=== PATIENT | female | born 1935 | race Caucasian/White ===

== ENCOUNTER 2017-09-19 15:36 | Inpatient (IN) | payer BC, OTHER ==
[~2017-09-19] VITALS: Ht 167.6 cm; Wt 77.5 kg
[~2017-09-19 15:36] MED LIST: ASCA500 PO; ASPEC325 PO; B-COCAP2 PO; CLTP PO; CRAN1CAP15 PO; LECI1200 PO; LEVO75TA PO; MULT-506 PO; OMEG10007 PO; SERT50TA PO; SIMV10TA2 PO; VITA400C15 PO
[2017-09-19] MEDS ORDERED: MoRPHine SULFATE 2 MG/ML CARP IV STA (16:03)
[2017-09-19] MEDS ORDERED: SODIUM CHLORIDE 0.9% 1000ML 1,000 ML IV STA (16:03)
[2017-09-19] MEDS ORDERED: ONDANSETRON INJ 2 MG/ML 2 ML VIAL IV STA (16:03)
--- NOTE | 2017-09-19 16:06 | EMERGENCY ROOM VISIT NOTE ---
History Report prepared by Nanci: Fletcher Shelby Under the Supervision of: Dr. Nadiya Kim M.D. First contact with patient: 15:50 Chief Complaint: FALL Stated Complaint: FALL, L HIP & R ARM PAIN History of Present Illness The patient is an 82 year old female who presents to the Emergency Room with complaints of constant, severe, left hip pain beginning an hour ago. The patient states she was walking to the car to go home when she slipped on ice and fell. She reports she landed on her left hip and right arm. The patient notes it hurts to move her left leg in any direction. She states she did not bump her head, become incontinent of her bladder or stool, or consuming alcohol. The patient reports she takes Zoloft, thyroid medication, and Zocor. Source of History: patient Onset: hour ago Position: other (left hip) Symptom Intensity: severe Timing: constant Note: Associated symptoms: right arm pain Denies: bumping head, becoming incontinent of her bladder or stool, consuming alcohol Review of Systems See HPI for pertinent positives & negatives. A total of 10 systems reviewed and were otherwise negative. Past Medical & Surgical Medical Problems: (1) bladder tack (2) Hip fracture, left (3) Hypercholesteremia (4) Hypothyroid Surgical Problems: (1) S/P tubal ligation Family History Cancer Social History Smoking Status: Never Smoker Alcohol Use: occasionally Marital Status: Housing Status: lives with family Occupation Status: retired Current/Historical Medications Scheduled Aspirin (Aspirin), 325 MG PO DAILY Calcium Carbonate-Cholecalcife (Caltrate 600+D), 1 TAB PO DAILY Levothyroxine Sodium (Levothyroxine Sodium), 75 MCG PO DAILY Multivitamin (Multivitamin), 1 TAB PO DAILY Sertraline HCl (Sertraline HCl), 50 MG PO DAILY Simvastatin (Simvastatin), 10 MG PO QPM Allergies Coded Allergies: No Known Allergies (Unverified , 09/19/17) Physical Exam Vital Signs Date Time Temp Pulse Resp B/P (MAP) Pulse Ox O2 Delivery O2 Flow Rate FiO2 09/19/17 17:47 63 20 158/70 99 Room Air 09/19/17 15:40 36.4 75 18 181/88 98 Room Air Physical Exam Vital signs reviewed. General: Well-appearing elderly, 82 year old female, in no significant distress. HEENT: No scleral icterus, PERRLA, neck supple. Atraumatic. Cardiovascular: Regular rate and rhythm, no extra sounds. Pulmonary: Clear to auscultation bilaterally, normal work of breathing. Abdomen: Soft, nontender, nondistended, positive bowel sounds. Musculoskeletal: Mild tenderness without significant deformity to the right proximal humorous. Tenderness to palpation over the left inguinal region with the leg externally rotated at the hip. Neurovascularly intact distally. Neurologic: Patient awake alert and oriented x 3 Skin: Warm, dry, no rash Medical Decision & Procedures ER Provider Diagnostic Interpretation: Radiology results as stated below per my review and radiologist interpretation: R SHOULDER MIN 2 VIEWS ROUTINE CLINICAL HISTORY: 82 years-old Female presenting with RIght shoulder fracture. TECHNIQUE: Frontal and transscapular Y views of the right shoulder were obtained. COMPARISON: Chest x-ray from 2013. FINDINGS: Essentially unchanged appearance of the posttraumatic or advanced degenerative deformity of the right humeral head and glenohumeral joint. The humeral metaphysis is also mildly angulated, likely chronic deformity. Degenerative changes of the acromioclavicular joint. Possible old fracture deformity of the right clavicle. IMPRESSION: Angulation of the proximal metaphysis is concerning for fracture, however, due to the severe degree of chronic deformity, assessment for acuity of this is difficult. If there is continuing clinical concern, cross-sectional imaging could be obtained. Electronically signed by: Cornelius Dutton M.D. 09/19/2017 4:48 PM Dictated Date/Time: 09/19/2017 4:46 PM L HIP UNILATERAL 2 VIEWS CLINICAL HISTORY: 82 years-old Female presenting with left hip deformity. TECHNIQUE: Frontal and crosstable lateral views of the left hip were obtained. COMPARISON: Plain radiographs of the right hip from 2013. FINDINGS: Evidence of a comminuted intertrochanteric fracture with diastases at the fracture plane measuring 14 mm. At least 14 mm of displacement of the lesser trochanteric fracture fragment. Valgus alignment of the distal fracture fragment with apex lateral angulation at the fracture site. The femoral head remains congruent in the hip joint. IMPRESSION: Comminuted, displaced intertrochanteric left femoral fracture. Electronically signed by: Cornelius Dutton M.D. 09/19/2017 4:46 PM Dictated Date/Time: 09/19/2017 4:44 PM CHEST ONE VIEW PORTABLE CLINICAL HISTORY: 82 years-old Female presenting with fall, hip fx. TECHNIQUE: Portable upright AP view of the chest was obtained. COMPARISON: 03/20/2014. FINDINGS: Atherosclerosis of the aortic arch. Cardiac silhouette normal in size. Lungs and pleural spaces clear. Posttraumatic and/or advanced degenerative changes of the right glenohumeral joint. No displaced rib fracture is apparent. Upper abdomen normal. IMPRESSION: 1. No acute cardiopulmonary disease. Electronically signed by: Cornelius Dutton M.D. 09/19/2017 4:44 PM Dictated Date/Time: 09/19/2017 4:42 PM R UPPER EXTREMITY WITHOUT CLINICAL HISTORY: 82 years-old Female presenting with Right shoulder fracture. TECHNIQUE: Multidetector CT of the right shoulder was performed without the use of intravenous contrast. IV contrast: None. A dose lowering technique was used consistent with the principles of ALARA (as low as reasonably achievable). COMPARISON: Plain radiograph performed earlier the same day. CT DOSE (mGy.cm): The estimated cumulative dose is 692.51 mGy.cm. FINDINGS: [employer] topogram: Unremarkable. Chronic deformity of the humeral head and neck without evidence of a fracture plane to suggest acute injury. Mild angulation of the surgical neck from chronic deformity. Effacement of the acromiohumeral interval consistent with complete rotator cuff tear. Mild fatty atrophy of the supraspinatus and infraspinatus. Advanced degenerative change of the glenohumeral joint. Prominent osteophytosis of the humeral head both superiorly and inferiorly. Evidence of joint space loss of the glenohumeral joint most pronounced inferiorly with subchondral sclerosis in both the humeral head and glenoid. Bony remodeling of the glenoid. Degenerative changes of the acromioclavicular joint. Possible posttraumatic deformity of the clavicle. No evidence of a rib fracture. Minimal dependent changes in the right lung likely atelectasis. Osteopenia. IMPRESSION: Post traumatic deformity of the humerus. No evidence of an acute osseous injury. Advanced degenerative changes as above. Electronically signed by: Cornelius Dutton M.D. 09/19/2017 5:24 PM Dictated Date/Time: 09/19/2017 5:21 PM Laboratory Results 09/19/17 16:10 Red Blood Count 3.97, Mean Corpuscular Volume 101.0, Mean Corpuscular Hemoglobin 34.3, Mean Corpuscular Hemoglobin Concent 33.9, Mean Platelet Volume 10.5, Neutrophils (%) (Auto) 66.0, Lymphocytes (%) (Auto) 25.4, Monocytes (%) ( Auto) 6.7, Eosinophils (%) (Auto) 1.0, Basophils (%) (Auto) 0.7, Neutrophils # ( Auto) 5.41, Lymphocytes # (Auto) 2.08, Monocytes # (Auto) 0.55, Eosinophils # ( Auto) 0.08, Basophils # (Auto) 0.06 09/19/17 16:10 Test 09/19/17 16:10 White Blood Count 8.20 K/uL (4.8-10.8) Red Blood Count 3.97 M/uL (4.2-5.4) Hemoglobin 13.6 g/dL (12.0-16.0) Hematocrit 40.1 % (37-47) Mean Corpuscular Volume 101.0 fL (80-100) Mean Corpuscular Hemoglobin 34.3 pg (25-34) Mean Corpuscular Hemoglobin Concent 33.9 g/dl (32-36) Platelet Count 243 K/uL (130-400) Mean Platelet Volume 10.5 fL (7.4-10.4) Neutrophils (%) (Auto) 66.0 % Lymphocytes (%) (Auto) 25.4 % Monocytes (%) (Auto) 6.7 % Eosinophils (%) (Auto) 1.0 % Basophils (%) (Auto) 0.7 % Neutrophils # (Auto) 5.41 K/uL (1.4-6.5) Lymphocytes # (Auto) 2.08 K/uL (1.2-3.4) Monocytes # (Auto) 0.55 K/uL (0.11-0.59) Eosinophils # (Auto) 0.08 K/uL (0-0.5) Basophils # (Auto) 0.06 K/uL (0-0.2) RDW Standard Deviation 49.2 fL (36.4-46.3) RDW Coefficient of Variation 13.3 % (11.5-14.5) Immature Granulocyte % (Auto) 0.2 % Immature Granulocyte # (Auto) 0.02 K/uL (0.00-0.02) Activated Partial Thromboplast Time 22.6 SECONDS (21.0-31.0) Partial Thromboplastin Ratio 0.9 Anion Gap 9.0 mmol/L (3-11) Est Creatinine Clear Calc Drug Dose 34.5 ml/min Estimated GFR () 43.9 Estimated GFR (Non- 37.9 BUN/Creatinine Ratio 11.5 (10-20) Calcium Level 8.9 mg/dl (8.5-10.1) Magnesium Level 2.1 mg/dl (1.8-2.4) Total Bilirubin 0.3 mg/dl (0.2-1) Direct Bilirubin < 0.1 mg/dl (0-0.2) Aspartate Amino Transf (AST/SGOT) 17 U/L (15-37) Alanine Aminotransferase (ALT/SGPT) 20 U/L (12-78) Alkaline Phosphatase 75 U/L (45-117) Total Protein 7.2 gm/dl (6.4-8.2) Albumin 3.6 gm/dl (3.4-5.0) Laboratory results per my review. Medications Administered Medications (Trade) Dose Ordered Sig/Edda Route Start Time Stop Time Status Last Admin Dose Admin Morphine Sulfate (MoRPHine SULFATE INJ) 2 mg NOW STAT IV 09/19/17 16:03 09/19/17 16:05 DC 09/19/17 16:42 2 MG Ondansetron HCl (Zofran Inj) 4 mg NOW STAT IV 09/19/17 16:03 09/19/17 16:05 DC 09/19/17 16:42 4 MG Sodium Chloride 1,000 ml @ 125 mls/hr Q8H STAT IV 09/19/17 16:03 09/19/17 19:21 DC 09/19/17 16:46 125 MLS/HR Hydromorphone HCl (Dilaudid Inj) 0.5 mg NOW STAT IV 09/19/17 17:47 09/19/17 17:55 DC 09/19/17 17:59 0.5 MG ECG Indication: other (pre-op) Rate (beats per minute): 57 Rhythm: sinus bradycardia Findings: PAC, RBBB (incomplete), no acute ischemic change, other (Low voltage) ED Course 1556: Past medical records reviewed. The patient was evaluated in room B03B. A complete history and physical examination was performed. 1603: Ordered Sodium Chloride 1000 ml @ 125 mls/hr IV, Ondansetron HCl 4mg IV, Morphine Sulfate 2mg IV 171: I [facility] the patient's [facility] The patient will be evaluated for further management and care. 1750: Upon reevaluation, the patient is resting comfortably. I discussed laboratory and radiographic results with her. She verbalized agreement of the treatment plan. The patient will be evaluated for further management and care. Medical Decision Differential diagnosis: Etiologies such as fracture, dislocation, neurovascular compromise, compartment syndrome, soft tissue injury, as well as others were entertained. This patient was evaluated and appeared to be in no significant distress. IV access was obtained and laboratory work was drawn. Patient was medicated with IV morphine and Zofran. X-rays confirm a left intertrochanteric fracture. The right humerus appears to have had an old injury, but due to tenderness a CT scan was performed after the x-ray was unclear. There is no acute fracture of the proximal humerus. The patient was informed of the findings. She will be evaluated by the hospitalist service for further management and orthopedic consultation. Patient is aware of the plan and agrees. Medication Reconcilliation Current Medication List: was personally reviewed by me Blood Pressure Screening Patient's blood pressure: Elevated blood pressure Monitored by hospitalist. Consults Time Called: 1713 Consulting Physician: Savi Nava Returned Call: 1715 I discussed the patient's case with Savi Nava. The patient will be evaluated for further management and care. Impression Primary Impression: Hip fracture, left Scribe Attestation The scribe's documentation has been prepared under my direction and personally reviewed by me in its entirety. I confirm that the note above accurately reflects all work, treatment, procedures, and medical decision making performed by me. Departure Information Dispostion Being Evaluated By Hospitalist Prescriptions Calcium Carbonate-Cholecalcife (CALTRATE 600+D) 1 Tab Tab 1 TAB PO DAILY, #30 Prov: Chris Molina MD 09/19/17 Referrals Leobardo Lowery D.O. (PCP) Patient Instructions My [facility]
[2017-09-19] MEDS ORDERED: LEVO75TA5 PO (16:09)
[2017-09-19] MEDS ORDERED: ASPECOTC PO (16:09)
[2017-09-19] MEDS ORDERED: MULT-506 PO (16:09)
[2017-09-19] MEDS ORDERED: ZLF/50 PO (16:09)
[2017-09-19] MEDS ORDERED: SIMV-150 PO (16:09)
[2017-09-19 16:21] LABS: BASO % 0.7 %; BASO ABS # 0.06 K/uL (0-0.2); EOS ABS # 0.08 K/uL (0-0.5); HEMATOCRIT 40.1 % (37-47); HEMOGLOBIN 13.6 g/dL (12.0-16.0); IG# 0.02 K/uL (0.00-0.02); LYMPH % 25.4 %; LYMPH ABS # 2.08 K/uL (1.2-3.4); MEAN CORPUSCULAR HEMOGLOBIN 34.3 pg (25-34); MEAN CORPUSCULAR HGB CONC 33.9 g/dl (32-36); MEAN PLATELET VOLUME 10.5 fL (7.4-10.4); MONO % 6.7 %; MONO ABS # 0.55 K/uL (0.11-0.59); NEUT ABS # 5.41 K/uL (1.4-6.5); PLATELET COUNT 243 K/uL (130-400); RED CELL DISTRIBUTION WIDTH CV 13.3 % (11.5-14.5); RED CELL DISTRIBUTION WIDTH SD 49.2 fL (36.4-46.3)
[2017-09-19 16:34] LABS: PTT PATIENT 22.6 SECONDS (21.0-31.0)
[2017-09-19 16:37] LABS: ALBUMIN 3.6 gm/dl (3.4-5.0); ALT/SGPT 20 U/L (12-78); BLOOD UREA NITROGEN 15 mg/dl (7-18); CALCIUM 8.9 mg/dl (8.5-10.1); CARBON DIOXIDE 26 mmol/L (21-32); GLUCOSE 152 mg/dl (70-99); POTASSIUM 3.5 mmol/L (3.5-5.1); SODIUM 140 mmol/L (136-145)
[2017-09-19 16:40] LABS: ALKALINE PHOSPHATASE 75 U/L (45-117); AST/SGOT 17 U/L (15-37); TOTAL PROTEIN 7.2 gm/dl (6.4-8.2)
--- NOTE | 2017-09-19 16:45 | DIAGNOSTIC IMAGING REPORT ---
CHEST ONE VIEW PORTABLE CLINICAL HISTORY: 82 years-old Female presenting with fall, hip fx. TECHNIQUE: Portable upright AP view of the chest was obtained. COMPARISON: 03/20/2014. FINDINGS: Atherosclerosis of the aortic arch. Cardiac silhouette normal in size. Lungs and pleural spaces clear. Posttraumatic and/or advanced degenerative changes of the right glenohumeral joint. No displaced rib fracture is apparent. Upper abdomen normal. IMPRESSION: 1. No acute cardiopulmonary disease. Electronically signed by: Cornelius Dutton M.D. 09/19/2017 4:44 PM Dictated Date/Time: 09/19/2017 4:42 PM
--- NOTE | 2017-09-19 16:47 | DIAGNOSTIC IMAGING REPORT ---
L HIP UNILATERAL 2 VIEWS CLINICAL HISTORY: 82 years-old Female presenting with left hip deformity. TECHNIQUE: Frontal and crosstable lateral views of the left hip were obtained. COMPARISON: Plain radiographs of the right hip from 2014. FINDINGS: Evidence of a comminuted intertrochanteric fracture with diastases at the fracture plane measuring 14 mm. At least 14 mm of displacement of the lesser trochanteric fracture fragment. Valgus alignment of the distal fracture fragment with apex lateral angulation at the fracture site. The femoral head remains congruent in the hip joint. IMPRESSION: Comminuted, displaced intertrochanteric left femoral fracture. Electronically signed by: Cornelius Dutton M.D. 09/19/2017 4:46 PM Dictated Date/Time: 09/19/2017 4:44 PM
--- NOTE | 2017-09-19 16:50 | DIAGNOSTIC IMAGING REPORT ---
R SHOULDER MIN 2 VIEWS ROUTINE CLINICAL HISTORY: 82 years-old Female presenting with RIght shoulder fracture. TECHNIQUE: Frontal and transscapular Y views of the right shoulder were obtained. COMPARISON: Chest x-ray from 2014. FINDINGS: Essentially unchanged appearance of the posttraumatic or advanced degenerative deformity of the right humeral head and glenohumeral joint. The humeral metaphysis is also mildly angulated, likely chronic deformity. Degenerative changes of the acromioclavicular joint. Possible old fracture deformity of the right clavicle. IMPRESSION: Angulation of the proximal metaphysis is concerning for fracture, however, due to the severe degree of chronic deformity, assessment for acuity of this is difficult. If there is continuing clinical concern, cross-sectional imaging could be obtained. Electronically signed by: Cornelius Dutton M.D. 09/19/2017 4:48 PM Dictated Date/Time: 09/19/2017 4:46 PM
--- NOTE | 2017-09-19 17:26 | DIAGNOSTIC IMAGING REPORT ---
R UPPER EXTREMITY WITHOUT CLINICAL HISTORY: 82 years-old Female presenting with Right shoulder fracture. TECHNIQUE: Multidetector CT of the right shoulder was performed without the use of intravenous contrast. IV contrast: None. A dose lowering technique was used consistent with the principles of ALARA (as low as reasonably achievable). COMPARISON: Plain radiograph performed earlier the same day. CT DOSE (mGy.cm): The estimated cumulative dose is 692.51 mGy.cm. FINDINGS: [employer] topogram: Unremarkable. Chronic deformity of the humeral head and neck without evidence of a fracture plane to suggest acute injury. Mild angulation of the surgical neck from chronic deformity. Effacement of the acromiohumeral interval consistent with complete rotator cuff tear. Mild fatty atrophy of the supraspinatus and infraspinatus. Advanced degenerative change of the glenohumeral joint. Prominent osteophytosis of the humeral head both superiorly and inferiorly. Evidence of joint space loss of the glenohumeral joint most pronounced inferiorly with subchondral sclerosis in both the humeral head and glenoid. Bony remodeling of the glenoid. Degenerative changes of the acromioclavicular joint. Possible posttraumatic deformity of the clavicle. No evidence of a rib fracture. Minimal dependent changes in the right lung likely atelectasis. Osteopenia. IMPRESSION: Post traumatic deformity of the humerus. No evidence of an acute osseous injury. Advanced degenerative changes as above. Electronically signed by: Cornelius Dutton M.D. 09/19/2017 5:24 PM Dictated Date/Time: 09/19/2017 5:21 PM
[2017-09-19] MEDS ORDERED: HYDROmorphone INJ 0.5 MG/0.5 ML SYR IV STA (17:47)
[2017-09-19] MEDS ORDERED: CALC-354 PO (17:59)
[2017-09-19] MEDS ORDERED: ONDANSETRON INJ 2 MG/ML 2 ML VIAL IV PRN (18:00)
[2017-09-19] MEDS ORDERED: ACETAMINOPHEN 325 MG TAB PO PRN (18:00)
[2017-09-19] MEDS ORDERED: HEPARIN SOD 5000 UNIT/0.5 ML CARP SQ ONE (18:27)
[2017-09-19 18:57] VITALS: O2SAT 97
--- NOTE | 2017-09-19 19:01 | HISTORY & PHYSICAL EXAMINATION ---
DATE OF ADMISSION: 09/19/2017 CHIEF COMPLAINT: Status post fall and left hip fracture. HISTORY OF PRESENT ILLNESS: This is an 82-year-old female with past medical history significant for psoriasis, depression, hyperlipidemia, hypothyroidism, chronic kidney disease stage III, presents with fall and left hip fracture. The patient says she was going to a car and it was slope and has ice and she slipped on the ice and she thinks she might have felt first on the right shoulder and then on the left hip and she could not get up and she was having severe pain and she was brought into the ER.In the ER, x-rays showed left hip comminuted intertrochanteric fracture. Blood pressure running high mostly secondary to pain. She still has some pain. Denies any dizziness prior to fall. No chest pain. No shortness of breath. No loss of consciousness. The patient has some chronic on and off cough. Denies any fever, chills, no headaches, no blurred vision, no runny nose, has hearing aids. No sore throat, no difficulty swallowing. No nausea, no vomiting, no abdominal pain. Normal bowel and bladder movements. No burning micturition. The patient is otherwise very active. 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 ALLERGIES: POLLEN. PAST MEDICAL HISTORY: As mentioned above. PAST SURGICAL HISTORY: Cystoscopy, tonsillectomy, repair of rectocele, total hysterectomy, puncture and drainage of the left breast. MEDICATIONS: The patient is on Caltrate 600+ D 1 tablet every a.m., vitamin C 1000 mg p.o. daily,Lecithin 1200 mg p.o. daily, B complex tablets 1 tablet daily, multivitamin 1 tablet daily, vitamin E capsule 400 units p.o. daily, aspirin 325 mg p.o. daily, Zocor 10 mg p.o. daily, Zoloft 50 mg p.o. daily, and levothyroxine 75 mcg p.o. daily. FAMILY HISTORY: Significant for sister has and cancer and diabetes. Father has heart disorder and a stroke. Mother has cancer. SOCIAL HISTORY: Never smoked. No alcohol use, occasional wine. No drug use. . REVIEW OF SYMPTOMS: As per HPI. Rest of review of systems negative. PHYSICAL EXAMINATION: GENERAL: The patient is of moderate build, not in distress. VITAL SIGNS: Temperature 36.4, pulse 75, respiratory rate 18, blood pressure 181/88, oxygen 98% room air. HEENT: No pallor, no icterus. Pupils equal, round, and reactive to light. NECK: No JVD, no neck masses, no carotid bruits. CARDIOVASCULAR: S1, S2 heard, regular rate and rhythm, no murmur, no gallop. RESPIRATORY SYSTEM: Normal AP diameter. No accessory muscle use. No wheezing, no crackles. ABDOMEN: Soft, bowel sounds present. Nontender. No distention. CENTRAL NERVOUS SYSTEM: Cranial nerves II-XII grossly intact. Nonfocal. EXTREMITIES: The left lower extremity is externally rotated and shortened. Right shoulder has some painful movement which is chronic. LABORATORY DATA: PTT 0.9. WBC 8.2, hemoglobin 13.6, hematocrit 40.1, and platelets 243. Sodium 140, potassium 3.5, chloride 105, bicarbonate 26, BUN 15, creatinine 1.3, serum glucose 152. Calcium 8.9, magnesium 2.1, total bilirubin 0.3, direct bilirubin less than 0.1, AST 17, ALT 20, alkaline phosphatase 75. IMAGING DATA: Right shoulder - x-ray angulation of the proximal metaphysis concerning for fracture; however, due to severe degree of chronic deformity assessment for acuity of this is difficult. Hip x-ray, comminuted displaced intertrochanteric left femoral fracture. Chest x-ray - no acute cardiopulmonary disease. Upper extremity CT - posttraumatic deformity of the humerus, no evidence of an acute osseous injury, advanced degenerative changes. EKG showed sinus bradycardia with PACs, incomplete right bundle branch block at rate of 57. No acute ST changes seen. ASSESSMENT AND PLAN: This is an 82-year-old female status post fall and left hip fracture. 1. Status post mechanical fall and left hip fracture. We will admit to medical floor. IV fluids, IV pain medications p.r.n., IV antiemetics p.r.n. Consulted ortho and plan for OR in a.m. The patient has no cardiac history. Ekg and chest x-ray unremarkable. The patient has good ambulatory status. The patient should be at acceptable risk to proceed with surgery. 2. Elevated blood pressure. No history of blood pressure, mostly situational from the pain. We will place on IV hydralazine p.r.n. 3. Acute renal failure and chronic kidney disease stage III. Baseline creatinine around 1-1.1, Presented with creatinine 1.3, probably from above. The patient will be placed on fluids. Will follow the labs in a.m. 4. Hypothyroidism. Continue Synthroid. 5. Hyperlipidemia. Continue statin. 6. Depression. Continue Zoloft. 7. Deep venous thrombosis prophylaxis. We will give 1 dose heparin subQ now and further anticoagulation post-surgery as per orthopedics. DISPOSITION: Admit to medical floor. PT and OT prior to discharge and Social Service to help with discharge planning. MADELEINE
[2017-09-19 19:44] VITALS: BP 161/74; PULSE 71; TEMP 36.7; O2SAT 99; Ht 167.6 cm; Wt 77.5 kg
--- NOTE | 2017-09-19 19:45 | NUR ---
ID: Pt A/O x 4. Very painful at this time. Rates pain 8-10/10. Pt ordered total bed rest. NSS at 100 in the left AC, to be changed to NS +20k when ED bag ends. lungs are clear throughout on 2L NC per protocol. Denies N/t severe weakness to LLE. AHA diet until midnight then NPO. Has not voided. Allevens on sacrum and heels. Bed in low and locked position, call teague in reach, pt rings appropriately. Waiting on orders for mccormick at this time.
[2017-09-19] MEDS: NSS + 20MEQ KCL 1000ML 1,000 ML IV SCH (20:46)
[2017-09-19] MEDS ORDERED: NALOXONE HCL 0.4 MG/1 ML VIAL/CARP IV PRN (21:15)
[2017-09-19] MEDS ORDERED: SOD PHOSPHATE/SOD BIPHOSPHATE ENEMA 132 ML BTL PR PRN (21:15)
[2017-09-19] MEDS ORDERED: MAGNESIUM HYDROXIDE SUSP 30 ML UDC PO PRN (21:15)
[2017-09-19] MEDS ORDERED: POLYETHYLENE (MIRALAX) 17 GM PACK PO PRN (21:15)
[2017-09-19] MEDS ORDERED: BISACODYL 10 MG SUPP PR PRN (21:15)
[2017-09-19] MEDS: SIMVASTATIN 10 MG TAB PO SCH (22:04)
[2017-09-19] MEDS: HYDROmorphone INJ 0.5 MG/0.5 ML SYR IV PRN (22:07)
[2017-09-19 23:17] VITALS: BP 155/77; PULSE 87; TEMP 36.4; O2SAT 99
[2017-09-20] VITALS (7 sets, daily range): BP systolic 116–150; BP diastolic 70–85; PULSE 75–87; TEMP 36.5–37.7; O2SAT 94–100
[2017-09-20] MEDS: NSS + 20MEQ KCL 1000ML 1,000 ML IV SCH ×2 (05:49→18:48)
[2017-09-20] MEDS: LEVOTHYROXINE 75 MCG TAB PO SCH (05:50)
[2017-09-20] MEDS: HYDROmorphone INJ 0.5 MG/0.5 ML SYR IV PRN ×3 (06:00→20:06)
[2017-09-20] MEDS ORDERED: CEFAZOLIN IV 2,000 MG in DEXTROSE 5% 50ML 50 ML IV SCH (06:00)
[2017-09-20] MEDS ORDERED: CEFAZOLIN SOD 2000MG/15 ML IV PUSH IV SCH (06:00)
[2017-09-20 06:03] LABS: BASO % 0.2 %; BASO ABS # 0.02 K/uL (0-0.2); HEMATOCRIT 30.8 % (37-47); HEMOGLOBIN 10.4 g/dL (12.0-16.0); IG# 0.03 K/uL (0.00-0.02); LYMPH % 16.5 %; LYMPH ABS # 1.62 K/uL (1.2-3.4); MEAN CELL VOLUME 103.7 fL (80-100); MEAN CORPUSCULAR HGB CONC 33.8 g/dl (32-36); MEAN PLATELET VOLUME 10.4 fL (7.4-10.4); MONO % 6.8 %; MONO ABS # 0.67 K/uL (0.11-0.59); NEUT % 76.2 %; NEUT ABS # 7.45 K/uL (1.4-6.5); PLATELET COUNT 196 K/uL (130-400); RED CELL DISTRIBUTION WIDTH CV 13.8 % (11.5-14.5); RED CELL DISTRIBUTION WIDTH SD 51.7 fL (36.4-46.3); WHITE BLOOD COUNT 9.79 K/uL (4.8-10.8)
[2017-09-20 06:06] LABS: INR 0.9 (0.9-1.1)
[2017-09-20 06:21] LABS: CREATININE 1.08 mg/dl (0.60-1.20); POTASSIUM 4.3 mmol/L (3.5-5.1)
[2017-09-20] MEDS: MULTIVITAMIN TAB PO SCH (09:00)
[2017-09-20] MEDS: CALCIUM 600MG + VIT D 400 IU TAB PO SCH (09:00)
[2017-09-20] MEDS: SERTRALINE HCL 50 MG TAB PO SCH (09:29)
--- NOTE | 2017-09-20 10:49 | Progress Note ---
Medicine Progress Note Date & Time of Visit: Sep 20, 2017 at 09:54. Subjective 82 yo F s/p mechanical fall with subsequent L hip fracture with pain. Pain is less controlled this morning on the Dilaudid IV as it is not lasting very long. She is NPO but denies any other symptoms aside from pain at this time. 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 She is currently feeling at baseline WRT this injury after the fall last night. Objective Last 8 Hrs Date Time Temp Pulse Resp B/P (MAP) Pulse Ox O2 Delivery O2 Flow Rate FiO2 09/20/17 07:30 Nasal Cannula 2.0 09/20/17 06:52 36.9 78 16 128/71 (90) 97 2.0 Physical Exam: GEN: WNWD, in mild distress, alert and appropriate HEENT: NC/AT, normal sclerae, MMM CARDIO: reg rate, S1/2 heard without m/g/r LUNGS: CTA bilaterally, no crackles, rales or wheezes, good diaphragmatic excursion ABD: soft, non-tender, non-distended, no rebound or guarding, +BS EXTREMITY: RP and DP palpable 2+ bilat, no LE swelling or edema, extremities are warm and well-perfused, L leg is externally rotated NEURO: CN 2-12 grossly intact, sensation intact throughout MSK: wiggles toes in L foot, restricted ROM L leg 2/2 pain. Normal ROM in RUE. SKIN: warm and dry Laboratory Results: 09/20/17 05:06 Red Blood Count 2.97, Mean Corpuscular Volume 103.7, Mean Corpuscular Hemoglobin 35.0, Mean Corpuscular Hemoglobin Concent 33.8, Mean Platelet Volume 10.4, Neutrophils (%) (Auto) 76.2, Lymphocytes (%) (Auto) 16.5, Monocytes (%) ( Auto) 6.8, Eosinophils (%) (Auto) 0.0, Basophils (%) (Auto) 0.2, Neutrophils # ( Auto) 7.45, Lymphocytes # (Auto) 1.62, Monocytes # (Auto) 0.67, Eosinophils # ( Auto) 0.00, Basophils # (Auto) 0.02 09/20/17 05:06 Test 09/19/17 16:10 09/19/17 22:15 09/20/17 05:06 Activated Partial Thromboplast Time 22.6 SECONDS (21.0-31.0) Partial Thromboplastin Ratio 0.9 Total Bilirubin 0.3 mg/dl (0.2-1) Direct Bilirubin < 0.1 mg/dl (0-0.2) Aspartate Amino Transf (AST/SGOT) 17 U/L (15-37) Alanine Aminotransferase (ALT/SGPT) 20 U/L (12-78) Alkaline Phosphatase 75 U/L (45-117) Total Protein 7.2 gm/dl (6.4-8.2) Albumin 3.6 gm/dl (3.4-5.0) Urine Color YELLOW Urine Appearance CLEAR (CLEAR) Urine pH 8.0 (4.5-7.5) Urine Specific [place] 1.019 (1.000-1.030) Urine Protein NEG (NEG) Urine Glucose (UA) NEG (NEG) Urine Ketones TRACE (NEG) Urine Occult Blood NEG (NEG) Urine Nitrite NEG (NEG) Urine Bilirubin NEG (NEG) Urine Urobilinogen NEG (NEG) Urine Leukocyte Esterase NEG (NEG) White Blood Count 9.79 K/uL (4.8-10.8) Red Blood Count 2.97 M/uL (4.2-5.4) Hemoglobin 10.4 g/dL (12.0-16.0) Hematocrit 30.8 % (37-47) Mean Corpuscular Volume 103.7 fL (80-100) Mean Corpuscular Hemoglobin 35.0 pg (25-34) Mean Corpuscular Hemoglobin Concent 33.8 g/dl (32-36) Platelet Count 196 K/uL (130-400) Mean Platelet Volume 10.4 fL (7.4-10.4) Neutrophils (%) (Auto) 76.2 % Lymphocytes (%) (Auto) 16.5 % Monocytes (%) (Auto) 6.8 % Eosinophils (%) (Auto) 0.0 % Basophils (%) (Auto) 0.2 % Neutrophils # (Auto) 7.45 K/uL (1.4-6.5) Lymphocytes # (Auto) 1.62 K/uL (1.2-3.4) Monocytes # (Auto) 0.67 K/uL (0.11-0.59) Eosinophils # (Auto) 0.00 K/uL (0-0.5) Basophils # (Auto) 0.02 K/uL (0-0.2) RDW Standard Deviation 51.7 fL (36.4-46.3) RDW Coefficient of Variation 13.8 % (11.5-14.5) Immature Granulocyte % (Auto) 0.3 % Immature Granulocyte # (Auto) 0.03 K/uL (0.00-0.02) Prothrombin Time 9.8 SECONDS (9.0-12.0) Prothromb Time International Ratio 0.9 (0.9-1.1) Anion Gap 5.0 mmol/L (3-11) Est Creatinine Clear Calc Drug Dose 41.5 ml/min Estimated GFR () 55.0 Estimated GFR (Non- 47.4 BUN/Creatinine Ratio 14.4 (10-20) Calcium Level 8.0 mg/dl (8.5-10.1) Magnesium Level 2.1 mg/dl (1.8-2.4) Date/Time Source Procedure Growth Status 09/19/17 22:15 Nasal MRSA DNA Surveillance Screen - Final Specimen Negative for MRSA by DNA Probe Complete Last 24 Hours Test 09/19/17 16:10 09/19/17 22:15 09/20/17 05:06 White Blood Count 8.20 K/uL 9.79 K/uL Red Blood Count 3.97 M/uL 2.97 M/uL Hemoglobin 13.6 g/dL 10.4 g/dL Hematocrit 40.1 % 30.8 % Mean Corpuscular Volume 101.0 fL 103.7 fL Mean Corpuscular Hemoglobin 34.3 pg 35.0 pg Mean Corpuscular Hemoglobin Concent 33.9 g/dl 33.8 g/dl Platelet Count 243 K/uL 196 K/uL Mean Platelet Volume 10.5 fL 10.4 fL Neutrophils (%) (Auto) 66.0 % 76.2 % Lymphocytes (%) (Auto) 25.4 % 16.5 % Monocytes (%) (Auto) 6.7 % 6.8 % Eosinophils (%) (Auto) 1.0 % 0.0 % Basophils (%) (Auto) 0.7 % 0.2 % Neutrophils # (Auto) 5.41 K/uL 7.45 K/uL Lymphocytes # (Auto) 2.08 K/uL 1.62 K/uL Monocytes # (Auto) 0.55 K/uL 0.67 K/uL Eosinophils # (Auto) 0.08 K/uL 0.00 K/uL Basophils # (Auto) 0.06 K/uL 0.02 K/uL RDW Standard Deviation 49.2 fL 51.7 fL RDW Coefficient of Variation 13.3 % 13.8 % Immature Granulocyte % (Auto) 0.2 % 0.3 % Immature Granulocyte # (Auto) 0.02 K/uL 0.03 K/uL Activated Partial Thromboplast Time 22.6 SECONDS Partial Thromboplastin Ratio 0.9 Sodium Level 140 mmol/L 139 mmol/L Potassium Level 3.5 mmol/L 4.3 mmol/L Chloride Level 105 mmol/L 108 mmol/L Carbon Dioxide Level 26 mmol/L 26 mmol/L Anion Gap 9.0 mmol/L 5.0 mmol/L Blood Urea Nitrogen 15 mg/dl 16 mg/dl Creatinine 1.30 mg/dl 1.08 mg/dl Est Creatinine Clear Calc Drug Dose 34.5 ml/min 41.5 ml/min Estimated GFR () 43.9 55.0 Estimated GFR (Non- 37.9 47.4 BUN/Creatinine Ratio 11.5 14.4 Random Glucose 152 mg/dl 135 mg/dl Calcium Level 8.9 mg/dl 8.0 mg/dl Magnesium Level 2.1 mg/dl 2.1 mg/dl Total Bilirubin 0.3 mg/dl Direct Bilirubin < 0.1 mg/dl Aspartate Amino Transf (AST/SGOT) 17 U/L Alanine Aminotransferase (ALT/SGPT) 20 U/L Alkaline Phosphatase 75 U/L Total Protein 7.2 gm/dl Albumin 3.6 gm/dl Urine Color YELLOW Urine Appearance CLEAR Urine pH 8.0 Urine Specific [place] 1.019 Urine Protein NEG Urine Glucose (UA) NEG Urine Ketones TRACE Urine Occult Blood NEG Urine Nitrite NEG Urine Bilirubin NEG Urine Urobilinogen NEG Urine Leukocyte Esterase NEG Prothrombin Time 9.8 SECONDS Prothromb Time International Ratio 0.9 Date/Time Source Procedure Growth Status 09/19/17 22:15 Nasal MRSA DNA Surveillance Screen - Final Specimen Negative for MRSA by DNA Probe Complete Assessment & Plan 82 yo F s/p mechanical fall with subsequent L hip fracture with pain. Pain is less controlled this morning on the Dilaudid IV as it is not lasting very long. She is NPO but denies any other symptoms aside from pain at this time. 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 She is currently feeling at baseline WRT this injury after the fall last night. 1. s/p mechanical fall and left hip fracture. Ortho consulted with potential plans for surgery today. The patient has been NPO since after midnight last night. Pain is not controlled well with the IV Dilaudid-added some PO Percocet to help last longer. IVF ongoing while patient is NPO. EKG and CXR are unremarkable. She denies any chest pain, shortness of breath or other ongoing symptoms in the last 6 months. She has no h/o cardiac disease, stroke or lung disease. She does have a h/o provoked blood clot during 50 years ago , but no issues since that time. 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 She does not need further cardiac preoperative workup prior to surgery and is moderate risk 2/2 age and type of surgery. Would recommend good DVT prophylaxis as soon as able with her history. 2. Elevated blood pressure 2/2 situation (pain in leg)-controlled this morning in acceptable range. She is not on antihypertensives at home and does not carry a diagnosis of hypertension. Cont effective pain control efforts. 3. Acute renal failure and chronic kidney disease stage III. She is at baseline creatinine today with GFR in the 40s after some IVf overnight. Cont to avoid nephrotoxic substances as able and renally dose medications. 4. Hypothyroidism. Continue Synthroid. 5. Hyperlipidemia. Continue statin. 6. Depression. Continue Zoloft. Full code DVT proph-held in light of upcoming procedure today, then per Ortho. Dispo-per Ortho and PT/OT post-operatively. DO Savi Castaneda Hospitalist Consultants: Ortho, Dr. Krishnan Current Inpatient Medications: Current Inpatient Medications Medications (Trade) Dose Ordered Sig/Edda Route Start Time Stop Time Status Last Admin Dose Admin Acetaminophen (Tylenol Tab) 650 mg Q4H PRN PO 09/19/17 18:00 1/24/18 17:59 09/19/17 23:26 650 MG Ondansetron HCl (Zofran Inj) 4 mg Q6H PRN IV 09/19/17 18:00 10/19/17 17:59 Levothyroxine Sodium (Synthroid Tab) 75 mcg DAILYBB PO 09/20/17 06:00 10/20/17 06:59 09/20/17 05:50 75 MCG Multivitamins (Multivitamin Tab) 1 tab DAILY PO 09/20/17 09:00 10/20/17 08:59 Sertraline HCl (Zoloft Tab) 50 mg DAILY PO 09/20/17 09:00 10/20/17 08:59 09/20/17 09:29 50 MG Simvastatin (Zocor Tab) 10 mg QPM PO 09/19/17 21:00 10/19/17 20:59 09/19/17 22:04 10 MG Potassium Chloride/Sodium Chloride 1,000 ml @ 100 mls/hr Q10H IV 09/19/17 19:21 10/19/17 19:20 09/20/17 05:49 100 MLS/HR Hydromorphone HCl (Dilaudid Inj) 0.5 mg Q3HWA PRN IV 09/19/17 18:00 10/03/17 17:59 09/20/17 09:32 0.5 MG Calcium/Vitamin D (Caltrate Plus Tab) 1 tab DAILY PO 09/20/17 09:00 10/20/17 08:59 Naloxone HCl (Narcan Inj) 0.1 mg PRN PRN IV 09/19/17 21:15 10/19/17 21:14 Senna/Docusate Sodium (Senokot S Tab) 2 tab HS PO 09/20/17 21:00 10/20/17 20:59 Polyethylene (Miralax Powder Packet) 17 gm DAILY PRN PO 09/19/17 21:15 10/19/17 21:14 Magnesium Hydroxide (Milk Of Magnesia Susp) 30 ml DAILY PRN PO 09/19/17 21:15 10/19/17 21:14 Bisacodyl (Dulcolax Supp) 10 mg DAILY PRN [place] 09/19/17 21:15 10/19/17 21:14 Sodium Biphosphate/ Sodium Phosphate (Fleet Enema) 132 ml PRN PRN [place] 09/19/17 21:15 Cefazolin Sodium (Ancef 2000mg Iv Push) 2,000 mg PREOP IV 09/20/17 06:00 09/21/17 05:59
[2017-09-20] MEDS: OXYCODONE/ACETAMINOPHEN 5-325 TAB PO PRN ×2 (12:43→23:58)
--- NOTE | 2017-09-20 14:30 | NUR ---
Received referral to see Pt for discharge planning. Spoke with Pt. She states she lives at home with her son and his family. She states she has a first floor set up at home. There are 2 steps to enter her home. Pt has a walker and cane at home. Discussed that most Pt's with hip fractures require rehab at discharge. Discussed rehab/SNF facilities. She states she would like to wait until she has had surgery before making referrals. pt is for surgery later today. Case Management will follow.
[2017-09-20] MEDS ORDERED: LIDOCAINE HCL 2% 2 ML VIAL (20MG/ML) ONE (15:11)
[2017-09-20] MEDS ORDERED: PROPOFOL IV EMULSION 10 MG/ML 20 ML VIAL IV ONE ×2 (15:11→17:15)
[2017-09-20] MEDS ORDERED: MIDAZOLAM HCL 1 MG/ML 2ML VIAL ONE (15:11)
[2017-09-20] MEDS ORDERED: BUPIVACAINE 0.5 % 5 MG/1 ML MPF 30ML VIAL ONE (15:41)
[2017-09-20] MEDS ORDERED: BUPIVACAINE/EPINEPHRINE 0.5% MPF 1:200,000 30 ML VIAL ONE (15:41)
[2017-09-20] MEDS ORDERED: NURSING VERBAL MED ORDER ONE (15:45)
[2017-09-20] MEDS ORDERED: LACTATED RINGER'S 1000ML IV SCH (16:00)
--- NOTE | 2017-09-20 16:10 | History & Physical Bridge Note ---
H&P Re-Evaluation Bridge Note: I have examined the patient, reviewed the History & Physical and in the interval since the performance of the History & Physical I have noted the following changes of clinical significance: No changes noted
--- NOTE | 2017-09-20 16:13 | Progress Note ---
Orthopedic SOAP Note Subjective Date of Service: Sep 20, 2017. Additional Notes: pain if moves Objective left hip shortened and rotated,bruise lateral left hip skin intact Date Time Temp Pulse Resp B/P (MAP) Pulse Ox O2 Delivery O2 Flow Rate FiO2 09/20/17 14:57 37.7 87 16 150/72 (98) 97 2.0 09/20/17 07:30 Nasal Cannula 2.0 09/20/17 06:52 36.9 78 16 128/71 (90) 97 2.0 09/19/17 23:17 36.4 87 18 155/77 (103) 99 Nasal Cannula 2.0 09/19/17 23:15 Nasal Cannula 2.0 09/19/17 19:44 36.7 71 18 161/74 Nasal Cannula 2.0 09/19/17 19:44 36.7 71 18 161/74 (103) 99 Nasal Cannula 2.0 09/19/17 18:57 63 16 158/72 97 09/19/17 18:38 94 Nasal Cannula 2.0 09/19/17 18:37 85 Room Air 09/19/17 17:47 63 20 158/70 99 Room Air Laboratory Results 24 Hours: Test 09/20/17 05:06 White Blood Count 9.79 K/uL Red Blood Count 2.97 M/uL Hemoglobin 10.4 g/dL Hematocrit 30.8 % Mean Corpuscular Volume 103.7 fL Mean Corpuscular Hemoglobin 35.0 pg Mean Corpuscular Hemoglobin Concent 33.8 g/dl Platelet Count 196 K/uL Mean Platelet Volume 10.4 fL Neutrophils (%) (Auto) 76.2 % Lymphocytes (%) (Auto) 16.5 % Monocytes (%) (Auto) 6.8 % Eosinophils (%) (Auto) 0.0 % Basophils (%) (Auto) 0.2 % Neutrophils # (Auto) 7.45 K/uL Lymphocytes # (Auto) 1.62 K/uL Monocytes # (Auto) 0.67 K/uL Eosinophils # (Auto) 0.00 K/uL Basophils # (Auto) 0.02 K/uL Prothromb Time International Ratio 0.9 Prothrombin Time 9.8 SECONDS Assessment comminuted intertrochanteric left hip fracture Plan ORIF with trochanteric femoral nail left hip
[2017-09-20] MEDS ORDERED: PROMETHAZINE HCL INJ 6.25 MG in SODIUM CHLORIDE 0.9% 50ML 50 ML IV PRN (17:00)
[2017-09-20] MEDS ORDERED: ONDANSETRON INJ 2 MG/ML 2 ML VIAL IV PRN (17:00)
[2017-09-20] MEDS ORDERED: FENTANYL CITRATE INJ 50 MCG/1 ML 2 ML VIAL IV PRN (17:00)
[2017-09-20] MEDS ORDERED: EpHEDrine SULFATE INJ 50 MG/ML AMP IV PRN (17:00)
[2017-09-20] MEDS ORDERED: ATROPINE SULFATE 0.1 MG/ML 5ML SYR IV PRN (17:00)
--- NOTE | 2017-09-20 18:17 | [facility] Post Operative Brief Note ---
Immediate Operative Summary Operative Date Sep 20, 2017. Pre-Operative Diagnosis Comminuted left trochanteric hip fracture Post-Operative Diagnosis same Procedure(s) Performed ORIF left hip WITH TROCHANTERIC MID LENGTH femoral nail Surgeon Dr. Allen Reina [employer] Plasma Etcher Surgeon(s) none Estimated Blood Loss 20ml Findings comminuted fracture but good distal cortexes and solid fixation in head Specimens no specimens per surgeon Drains none Anesthesia spinal ,local Complication(s) None Disposition Recovery Room / PACU
[2017-09-20] MEDS ORDERED: MAGNESIUM HYDROXIDE SUSP 30 ML UDC PO PRN (18:30)
[2017-09-20] MEDS ORDERED: BISACODYL 10 MG SUPP PR PRN (18:30)
--- NOTE | 2017-09-20 18:57 | Anesthesiology Progress Note ---
Anesthesia Post Op Note Date & Time Sep 20, 2017 at 18:56 Vital Signs Pain Intensity: 0 Vital Signs Past 12 Hours Date Time Temp Pulse Resp B/P (MAP) Pulse Ox O2 Delivery O2 Flow Rate FiO2 09/20/17 18:28 66 17 09/20/17 18:28 68 17 99 09/20/17 18:27 133/65 09/20/17 18:23 64 15 100 09/20/17 18:23 65 15 09/20/17 18:22 142/58 09/20/17 18:18 67 15 09/20/17 18:18 66 15 100 09/20/17 18:17 138/60 09/20/17 18:13 68 15 09/20/17 18:13 66 15 99 09/20/17 18:12 139/70 09/20/17 18:09 127/75 09/20/17 18:08 96 16 09/20/17 18:08 77 16 09/20/17 18:03 36.5 65 16 138/60 100 Nasal Cannula 3 09/20/17 14:57 37.7 87 16 150/72 (98) 97 2.0 09/20/17 07:30 Nasal Cannula 2.0 Notes Mental Status: alert / awake / arousable, participated in evaluation Pt Amnestic to Procedure: Yes Nausea / Vomiting: adequately controlled Pain: adequately controlled Airway Patency, RR, SpO2: stable & adequate BP & HR: stable & adequate Hydration State: stable & adequate Neuraxial Anesthesia: was administered, sensory block is resolving Anesthetic Complications: no major complications apparent
--- NOTE | 2017-09-20 19:36 | NUR ---
ID: Pt A&Ox4, all vitals WNL on 3L NC. Denies Pain. Munoz patent and draining. Tolerating bedrest untill AM. Fluids infusing in the left AC. Tolerating an AHA diet. Microfoam intact to the left hip. D/C plans uncertain at this time.
--- NOTE | 2017-09-20 20:21 | OPERATIVE REPORT ---
DATE OF OPERATION: 09/19/2017 INDICATION FOR PROCEDURE: The patient is an 82-year-old female who presents with a fall on the ice fracturing her left hip. Radiographs demonstrate that she has a comminuted intertrochanteric hip fracture with some comminution of the greater trochanter and a displaced lesser trochanter fracture, but good distal cortices in the isthmus. She has a small area of calcific tendonitis in the greater trochanteric abductor attachment region. PREOPERATIVE DIAGNOSIS: Acute intertrochanteric fracture of the left hip with comminution. POSTOPERATIVE DIAGNOSIS: Same. PROCEDURE PERFORMED: Open reduction internal fixation using a Synthes titanium cannulated trochanteric femoral nail mid length nail fixation with a helical blade. SURGEON: Dr. Reina. DIABETES PHYSICIAN: None. ANESTHESIA: Spinal and local anesthetic. DRAINS: None. ESTIMATED BLOOD LOSS: 20 mL. OPERATIVE PROCEDURE: The patient was taken to the operating room, anesthetized under spinal anesthetic. She was placed supine on the operating room table. She was placed on a fracture table. She was brought down to a perineal post. Her right hip was flexed and internally rotated and placed into a well-padded leg holding device. Her left leg was placed into boot traction. All extremities were padded otherwise. The left hip was slightly abducted, placed in longitudinal traction and internal rotation on the hip, then adduction with traction on the leg to reduce the fracture. Failed to get good reduction of the fracture in AP and lateral views with slight medial displacement of the neck and head fragment. Priddy that alignment was as good as we could get with closed reduction and then we proceeded with the femoral nailing. So, I went ahead and we reprepped the left hip down to the knee with ChloraPrep and then she was draped in usual sterile fashion. A longitudinal incision was made over the tip of the greater trochanter, skin was incised sharply, the fat was divided down to the fascia and moderately deep layer fat was divided. Subcutaneous bleeders were cauterized. The fascia felicita was divided longitudinally and then the tip of the trochanter was palpated and noted to be comminuted. I placed the guide pin for the Synthes nail equipment using power into the tip of the greater trochanter and advanced it into the proximal shaft on AP and lateral views under fluoroscopy and then we went ahead and drilled the hole for insertion site with the powered appropriate reamer drill proximally. Then based on intraoperative radiographic evaluation, we felt that a 10 mm nail would fit to canal appropriately, so we chose the 10 x 130 degree angle titanium trochanteric femoral nail which was 235 mm in length. This was placed on the insertion device. It was placed down into the shaft under fluoroscopic guidance. It was set down to appropriate depth. I then went ahead and placed on the alignment guide for the pin into a separate incision, the guide pin was placed into the femoral neck and head. We positioned this slightly below the midline in the lower third in the good bone and then posteriorly slightly from the midline in the good bone in the posterior neck and head. The length for the helical blade was measured and chose 100 mm x 11 mm titanium helical blade. Then the femur was reamed and it was noted that she had very hard bone in the femoral neck and head upon reaming into the femoral neck and head. Then the helical blade was impacted into the femoral neck and head and there was a very hard bone noted. Then at this point, the blade was locked proximally with the screw and then we went ahead and compressed the fracture with compression device after lateral traction off. We maximally compressed the fracture until line was satisfactory. Then the mid length nail was locked distally with a 5 mm x 40 mm length locking screw. All insertion devices were removed. We got final radiographs of the AP and lateral views demonstrated satisfactory alignment and reduction of the fracture. At this point, we placed some abduction on the hip and irrigated all wounds. Then repaired the fascia with [id number] #1 Vicryl sutures. The subcutaneous tissues were closed in layers with interrupted 2-0 Vicryl, skin was closed with ashley. Sterile dressings were applied including Xeroform, sterile gauzes, ABD pads and foam tape. The patient had about 20 mL of blood loss and tolerated the procedure well. I attest to the content of the Intraoperative Record and any orders documented therein. Any exception s are noted below.
[2017-09-20] MEDS: DOCUSATE SODIUM/SENNA 50/8.6MG TAB PO SCH (20:30)
[2017-09-20] MEDS: SIMVASTATIN 10 MG TAB PO SCH (20:30)
[2017-09-20] MEDS: CEFAZOLIN IV 1,000 MG in SYRINGE 0 ML IV SCH (21:43)
[2017-09-21] VITALS (12 sets, daily range): BP systolic 99–131; BP diastolic 57–83; PULSE 73–99; TEMP 36.4–36.9; O2SAT 86–99
[2017-09-21] MEDS: NSS + 20MEQ KCL 1000ML 1,000 ML IV SCH (04:50)
[2017-09-21] MEDS: LEVOTHYROXINE 75 MCG TAB PO SCH (05:51)
[2017-09-21] MEDS: CEFAZOLIN IV 1,000 MG in SYRINGE 0 ML IV SCH ×2 (05:51→14:05)
[2017-09-21] MEDS: OXYCODONE/ACETAMINOPHEN 5-325 TAB PO PRN ×4 (06:31→21:20)
[2017-09-21 06:45] LABS: BASO % 0.5 %; BASO ABS # 0.05 K/uL (0-0.2); EOS % 0.3 %; EOS ABS # 0.03 K/uL (0-0.5); HEMATOCRIT 27.1 % (37-47); HEMOGLOBIN 8.9 g/dL (12.0-16.0); IG# 0.02 K/uL (0.00-0.02); LYMPH ABS # 1.95 K/uL (1.2-3.4); MEAN CELL VOLUME 104.6 fL (80-100); MEAN CORPUSCULAR HEMOGLOBIN 34.4 pg (25-34); MEAN CORPUSCULAR HGB CONC 32.8 g/dl (32-36); MEAN PLATELET VOLUME 10.3 fL (7.4-10.4); MONO % 11.5 %; MONO ABS # 1.25 K/uL (0.11-0.59); NEUT % 69.5 %; NEUT ABS # 7.55 K/uL (1.4-6.5); PLATELET COUNT 163 K/uL (130-400); RED CELL DISTRIBUTION WIDTH CV 13.9 % (11.5-14.5); WHITE BLOOD COUNT 10.85 K/uL (4.8-10.8)
[2017-09-21 07:16] LABS: CALCIUM 7.9 mg/dl (8.5-10.1); CREATININE 1.04 mg/dl (0.60-1.20); POTASSIUM 3.9 mmol/L (3.5-5.1)
--- NOTE | 2017-09-21 08:28 | Anesthesiology Progress Note ---
Anesthesia Post Op Note Date & Time Sep 21, 2017 at 08:23 Vital Signs Vital Signs Past 12 Hours Date Time Temp Pulse Resp B/P (MAP) Pulse Ox O2 Delivery O2 Flow Rate FiO2 09/21/17 06:48 36.8 73 16 115/72 (86) 99 2.0 09/21/17 06:47 88 Room Air 09/21/17 06:28 96 Nasal Cannula 2.0 09/21/17 06:26 82 120/83 (95) 96 Nasal Cannula 3.0 09/21/17 03:48 36.7 83 18 99/57 (71) 97 Nasal Cannula 3.0 09/20/17 23:45 Nasal Cannula 2.5 09/20/17 22:47 36.6 85 18 121/70 (87) 96 Nasal Cannula 2.5 09/20/17 21:30 36.8 80 16 116/74 (88) 94 Nasal Cannula 2.0 09/20/17 20:31 36.9 85 16 119/70 (86) 94 Nasal Cannula 2.0 Notes Mental Status: alert / awake / arousable, participated in evaluation Pt Amnestic to Procedure: Yes Nausea / Vomiting: adequately controlled Pain: adequately controlled Airway Patency, RR, SpO2: stable & adequate BP & HR: stable & adequate Hydration State: stable & adequate Neuraxial Anesthesia: sensory block resolved Anesthetic Complications: no major complications apparent
[2017-09-21] MEDS: SERTRALINE HCL 50 MG TAB PO SCH (08:42)
[2017-09-21] MEDS: CALCIUM 600MG + VIT D 400 IU TAB PO SCH (08:42)
[2017-09-21] MEDS: MULTIVITAMIN TAB PO SCH (08:42)
[2017-09-21] MEDS: ASPIRIN/ALUM/MAGNES/CAL CARB 325 MG TAB PO SCH ×2 (09:31→21:19)
--- NOTE | 2017-09-21 09:57 | NUR ---
Reviewed chart. Spoke with Pt. Discussed rehab/SNF facilities. She states she goes to [facility] at [facility] and knows some of the staff there. She would like to go to [facility] for rehab at discharge. Referral faxed to [facility]. Pt has a commercial insurance and will require authorization prior to transfer. Case Management will follow.
--- NOTE | 2017-09-21 13:37 | NUR ---
Pt screened for admitting Dx of L Hip fracture. Please refer to linked assessment Addendum: 09/21/17 at [address] Amended: Links added.
--- NOTE | 2017-09-21 14:16 | NUR ---
A note: Tammy only had 175ml out today. Dr. Cerrato aware. Pt. encouraged to drink PO fluids.
--- NOTE | 2017-09-21 15:32 | Orthopedic Progress Note ---
Orthopedic Progress Note Date of Service Sep 21, 2017. Subjective Post OP Day: 1 Reports: feeling well, pain controlled w PO medications, Denies: complaints, chest pain, SOB, nausea / vomiting, light headedness, calf pain Objective calves soft nontender, N/V intact, hip located, capillary refill less than 2 sec., dressing C/D/I, A&O x3, toes mobile Date Time Temp Pulse Resp B/P (MAP) Pulse Ox O2 Delivery O2 Flow Rate FiO2 09/21/17 13:35 92 Room Air 09/21/17 12:00 36.9 99 18 115/68 (84) 94 Room Air 09/21/17 08:00 Room Air 09/21/17 06:48 36.8 73 16 115/72 (86) 99 2.0 09/21/17 06:47 88 Room Air 09/21/17 06:28 96 Nasal Cannula 2.0 09/21/17 06:26 82 120/83 (95) 96 Nasal Cannula 3.0 09/21/17 03:48 36.7 83 18 99/57 (71) 97 Nasal Cannula 3.0 09/20/17 23:45 Nasal Cannula 2.5 09/20/17 22:47 36.6 85 18 121/70 (87) 96 Nasal Cannula 2.5 09/20/17 21:30 36.8 80 16 116/74 (88) 94 Nasal Cannula 2.0 09/20/17 20:31 36.9 85 16 119/70 (86) 94 Nasal Cannula 2.0 09/20/17 19:31 Nasal Cannula 3.0 09/20/17 19:30 36.6 75 18 137/83 (101) 100 Nasal Cannula 2.0 09/20/17 19:00 36.5 81 18 119/85 (96) 99 Nasal Cannula 2.0 09/20/17 18:30 Nasal Cannula 3.0 09/20/17 18:28 66 17 09/20/17 18:28 68 17 99 09/20/17 18:27 133/65 09/20/17 18:23 64 15 100 09/20/17 18:23 65 15 09/20/17 18:22 142/58 09/20/17 18:18 67 15 09/20/17 18:18 66 15 100 09/20/17 18:17 138/60 09/20/17 18:13 68 15 09/20/17 18:13 66 15 99 09/20/17 18:12 139/70 09/20/17 18:09 127/75 09/20/17 18:08 96 16 09/20/17 18:08 77 16 09/20/17 18:03 36.5 65 16 138/60 100 Nasal Cannula 3 Laboratory Results 24 Hours: Test 09/21/17 06:27 White Blood Count 10.85 K/uL Red Blood Count 2.59 M/uL Hemoglobin 8.9 g/dL Hematocrit 27.1 % Mean Corpuscular Volume 104.6 fL Mean Corpuscular Hemoglobin 34.4 pg Mean Corpuscular Hemoglobin Concent 32.8 g/dl Platelet Count 163 K/uL Mean Platelet Volume 10.3 fL Neutrophils (%) (Auto) 69.5 % Lymphocytes (%) (Auto) 18.0 % Monocytes (%) (Auto) 11.5 % Eosinophils (%) (Auto) 0.3 % Basophils (%) (Auto) 0.5 % Neutrophils # (Auto) 7.55 K/uL Lymphocytes # (Auto) 1.95 K/uL Monocytes # (Auto) 1.25 K/uL Eosinophils # (Auto) 0.03 K/uL Basophils # (Auto) 0.05 K/uL Assessment & Plan Assessment: POD #1, ORIF Left Hip with Medium length troch nail. Plan: PT/ OT 25-50% WB w walker DVT proph- ASA D/C planning- [facility] As per medicine.
--- NOTE | 2017-09-21 18:18 | Progress Note ---
Medicine Progress Note Date & Time of Visit: Sep 21, 2017 at 13:10. Subjective 82 yo F s/p mechanical fall with subsequent L hip fracture with pain. she underwent fracture repair last night and was continued on IVF overnight. She reports pain well controlled [facility] pain medications today. She is ambulating with a walker. She is tolerating PO. Objective Last 8 Hrs Date Time Temp Pulse Resp B/P (MAP) Pulse Ox O2 Delivery O2 Flow Rate FiO2 09/21/17 12:00 36.9 99 18 115/68 (84) 94 Room Air 09/21/17 08:00 Room Air 09/21/17 06:48 36.8 73 16 115/72 (86) 99 2.0 09/21/17 06:47 88 Room Air 09/21/17 06:28 96 Nasal Cannula 2.0 09/21/17 06:26 82 120/83 (95) 96 Nasal Cannula 3.0 Physical Exam: GEN: WNWD, NAD, alert and appropriate HEENT: NC/AT, normal sclerae, MMM CARDIO: reg rate, S1/2 heard without m/g/r LUNGS: CTA bilaterally, no crackles, rales or wheezes, good diaphragmatic excursion ABD: soft, non-tender, non-distended, no rebound or guarding, +BS EXTREMITY: RP and DP palpable 2+ bilat, no LE swelling or edema, extremities are warm and well-perfused, bandage on outer L thigh is C/D/I NEURO: CN 2-12 grossly intact, sensation intact throughout MSK: normal ROM LLE SKIN: warm and dry and wound as above. Laboratory Results: 09/21/17 06:27 Red Blood Count 2.59, Mean Corpuscular Volume 104.6, Mean Corpuscular Hemoglobin 34.4, Mean Corpuscular Hemoglobin Concent 32.8, Mean Platelet Volume 10.3, Neutrophils (%) (Auto) 69.5, Lymphocytes (%) (Auto) 18.0, Monocytes (%) ( Auto) 11.5, Eosinophils (%) (Auto) 0.3, Basophils (%) (Auto) 0.5, Neutrophils # (Auto) 7.55, Lymphocytes # (Auto) 1.95, Monocytes # (Auto) 1.25, Eosinophils # ( Auto) 0.03, Basophils # (Auto) 0.05 09/21/17 06:27 Test 09/19/17 16:10 09/19/17 22:15 09/20/17 05:06 09/21/17 06:27 Activated Partial Thromboplast Time 22.6 SECONDS (21.0-31.0) Partial Thromboplastin Ratio 0.9 Total Bilirubin 0.3 mg/dl (0.2-1) Direct Bilirubin < 0.1 mg/dl (0-0.2) Aspartate Amino Transf (AST/SGOT) 17 U/L (15-37) Alanine Aminotransferase (ALT/SGPT) 20 U/L (12-78) Alkaline Phosphatase 75 U/L (45-117) Total Protein 7.2 gm/dl (6.4-8.2) Albumin 3.6 gm/dl (3.4-5.0) Urine Color YELLOW Urine Appearance CLEAR (CLEAR) Urine pH 8.0 (4.5-7.5) Urine Specific [place] 1.019 (1.000-1.030) Urine Protein NEG (NEG) Urine Glucose (UA) NEG (NEG) Urine Ketones TRACE (NEG) Urine Occult Blood NEG (NEG) Urine Nitrite NEG (NEG) Urine Bilirubin NEG (NEG) Urine Urobilinogen NEG (NEG) Urine Leukocyte Esterase NEG (NEG) Prothrombin Time 9.8 SECONDS (9.0-12.0) Prothromb Time International Ratio 0.9 (0.9-1.1) White Blood Count 10.85 K/uL (4.8-10.8) Red Blood Count 2.59 M/uL (4.2-5.4) Hemoglobin 8.9 g/dL (12.0-16.0) Hematocrit 27.1 % (37-47) Mean Corpuscular Volume 104.6 fL (80-100) Mean Corpuscular Hemoglobin 34.4 pg (25-34) Mean Corpuscular Hemoglobin Concent 32.8 g/dl (32-36) Platelet Count 163 K/uL (130-400) Mean Platelet Volume 10.3 fL (7.4-10.4) Neutrophils (%) (Auto) 69.5 % Lymphocytes (%) (Auto) 18.0 % Monocytes (%) (Auto) 11.5 % Eosinophils (%) (Auto) 0.3 % Basophils (%) (Auto) 0.5 % Neutrophils # (Auto) 7.55 K/uL (1.4-6.5) Lymphocytes # (Auto) 1.95 K/uL (1.2-3.4) Monocytes # (Auto) 1.25 K/uL (0.11-0.59) Eosinophils # (Auto) 0.03 K/uL (0-0.5) Basophils # (Auto) 0.05 K/uL (0-0.2) RDW Standard Deviation 53.0 fL (36.4-46.3) RDW Coefficient of Variation 13.9 % (11.5-14.5) Immature Granulocyte % (Auto) 0.2 % Immature Granulocyte # (Auto) 0.02 K/uL (0.00-0.02) Red Blood Cell Morphology Unremarkable Anion Gap 6.0 mmol/L (3-11) Est Creatinine Clear Calc Drug Dose 43.1 ml/min Estimated GFR () 57.5 Estimated GFR (Non- 49.6 BUN/Creatinine Ratio 12.1 (10-20) Calcium Level 7.9 mg/dl (8.5-10.1) Magnesium Level 2.0 mg/dl (1.8-2.4) Date/Time Source Procedure Growth Status 09/19/17 22:15 Nasal MRSA DNA Surveillance Screen - Final Specimen Negative for MRSA by DNA Probe Complete Last 24 Hours Test 09/21/17 06:27 White Blood Count 10.85 K/uL Red Blood Count 2.59 M/uL Hemoglobin 8.9 g/dL Hematocrit 27.1 % Mean Corpuscular Volume 104.6 fL Mean Corpuscular Hemoglobin 34.4 pg Mean Corpuscular Hemoglobin Concent 32.8 g/dl Platelet Count 163 K/uL Mean Platelet Volume 10.3 fL Neutrophils (%) (Auto) 69.5 % Lymphocytes (%) (Auto) 18.0 % Monocytes (%) (Auto) 11.5 % Eosinophils (%) (Auto) 0.3 % Basophils (%) (Auto) 0.5 % Neutrophils # (Auto) 7.55 K/uL Lymphocytes # (Auto) 1.95 K/uL Monocytes # (Auto) 1.25 K/uL Eosinophils # (Auto) 0.03 K/uL Basophils # (Auto) 0.05 K/uL RDW Standard Deviation 53.0 fL RDW Coefficient of Variation 13.9 % Immature Granulocyte % (Auto) 0.2 % Immature Granulocyte # (Auto) 0.02 K/uL Red Blood Cell Morphology Unremarkable Sodium Level 138 mmol/L Potassium Level 3.9 mmol/L Chloride Level 108 mmol/L Carbon Dioxide Level 24 mmol/L Anion Gap 6.0 mmol/L Blood Urea Nitrogen 13 mg/dl Creatinine 1.04 mg/dl Est Creatinine Clear Calc Drug Dose 43.1 ml/min Estimated GFR () 57.5 Estimated GFR (Non- 49.6 BUN/Creatinine Ratio 12.1 Random Glucose 124 mg/dl Calcium Level 7.9 mg/dl Magnesium Level 2.0 mg/dl Assessment & Plan 82 yo F s/p mechanical fall with subsequent L hip fracture with pain. she underwent fracture repair last night and was continued on IVF overnight. She reports pain well controlled wt pain medications today. She is ambulating with a walker. She is tolerating PO. 1. s/p mechanical fall and left hip fracture s/p repair POD#1-pain well controlled, ambulating with walker. Plans for DC to [facility] in am. Follow-up with Ortho as outpatient. 2. CKD III She is at baseline creatinine today with GFR in the 40s after some IVf overnight. Cont to avoid nephrotoxic substances as able and renally dose medications. 3. Hypothyroidism. Continue Synthroid. 4. Hyperlipidemia. Continue statin. 5. Depression. Continue Zoloft. Full code DVT proph-ASA 325 BID per Ortho Dispo-to rehab in am. [facility] Consultants: Jarvis, Dr. Krishnan Current Inpatient Medications: Current Inpatient Medications Medications (Trade) Dose Ordered Sig/[facility] Route Start Time Stop Time Status Last Admin Dose Admin Acetaminophen (Tylenol Tab) 650 mg Q4H PRN PO 09/19/17 18:00 10/19/17 17:59 09/19/17 23:26 650 MG Ondansetron HCl (Zofran Inj) 4 mg Q6H PRN IV 09/19/17 18:00 10/19/17 17:59 09/20/17 20:06 4 MG Levothyroxine Sodium (Synthroid Tab) 75 mcg DAILYBB PO 09/20/17 06:00 10/20/17 06:59 09/21/17 05:51 75 MCG Multivitamins (Multivitamin Tab) 1 tab DAILY PO 09/20/17 09:00 10/20/17 08:59 09/21/17 08:42 1 TAB Sertraline HCl (Zoloft Tab) 50 mg DAILY PO 09/20/17 09:00 10/20/17 08:59 09/21/17 08:42 50 MG Simvastatin (Zocor Tab) 10 mg QPM PO 09/19/17 21:00 10/19/17 20:59 09/20/17 20:30 10 MG Hydromorphone HCl (Dilaudid Inj) 0.5 mg Q3HWA PRN IV 09/19/17 18:00 10/03/17 17:59 09/20/17 20:06 0.5 MG Calcium/Vitamin D (Caltrate Plus Tab) 1 tab DAILY PO 09/20/17 09:00 10/20/17 08:59 09/21/17 08:42 1 TAB Naloxone HCl (Narcan Inj) 0.1 mg PRN PRN IV 09/19/17 21:15 10/19/17 21:14 Senna/Docusate Sodium (Senokot S Tab) 2 tab HS PO 09/20/17 21:00 10/20/17 20:59 09/20/17 20:30 2 TAB Polyethylene (Miralax Powder Packet) 17 gm DAILY PRN PO 09/19/17 21:15 10/19/17 21:14 Magnesium Hydroxide (Milk Of Magnesia Susp) 30 ml DAILY PRN PO 09/19/17 21:15 10/19/17 21:14 Sodium Biphosphate/ Sodium Phosphate (Fleet Enema) 132 ml PRN PRN [place] 09/19/17 21:15 Oxycodone/ Acetaminophen (Percocet 5-325mg Tab) 1 tab Q4H PRN PO 09/20/17 10:00 10/04/17 09:59 09/21/17 10:47 1 TAB Cefazolin Sodium 1000 mg/Syringe 5 ml @ 100 mls/hr Q8H IV 09/20/17 22:00 09/21/17 21:59 09/21/17 05:51 100 MLS/HR Aspirin/Aluminum/ Magnesium/Ca Carb (Ascriptin Tab) 325 mg BID PO 09/20/17 21:00 10/20/17 20:59 Future hold 09/21/17 09:31 325 MG Bisacodyl (Dulcolax Supp) 10 mg DAILY PRN [place] 09/20/17 18:30 10/20/17 18:29
[2017-09-21] MEDS: DOCUSATE SODIUM/SENNA 50/8.6MG TAB PO SCH (21:00)
[2017-09-21] MEDS: SIMVASTATIN 10 MG TAB PO SCH (21:20)
--- NOTE | 2017-09-21 21:51 | NUR ---
ID note: pt alert and oriented x4. Munoz D/C'd of 1999 with 475ml of clear yellow urine. PO pain medications given to help the pt have pain control this shift. Microfoam to left hip is clean,dry,and intact with the EZ ice applied. Lungs clear on RA. Denies chest pain and SOB. Possible discharge to a rehab tomorrow.
[2017-09-22] VITALS (14 sets, daily range): BP systolic 103–146; BP diastolic 62–84; PULSE 72–87; TEMP 36.6–37.4; O2SAT 88–99
[2017-09-22] MEDS: LEVOTHYROXINE 75 MCG TAB PO SCH (05:20)
[2017-09-22 06:18] LABS: BASO % 0.4 %; BASO ABS # 0.04 K/uL (0-0.2); HEMOGLOBIN 7.2 g/dL (12.0-16.0); IG# 0.03 K/uL (0.00-0.02); LYMPH % 10.7 %; LYMPH ABS # 1.05 K/uL (1.2-3.4); MEAN CELL VOLUME 103.3 fL (80-100); MEAN CORPUSCULAR HEMOGLOBIN 33.8 pg (25-34); MEAN CORPUSCULAR HGB CONC 32.7 g/dl (32-36); MEAN PLATELET VOLUME 10.3 fL (7.4-10.4); MONO % 11.4 %; MONO ABS # 1.12 K/uL (0.11-0.59); NEUT % 76.2 %; NEUT ABS # 7.45 K/uL (1.4-6.5); PLATELET COUNT 152 K/uL (130-400); RED CELL DISTRIBUTION WIDTH CV 13.3 % (11.5-14.5); WHITE BLOOD COUNT 9.79 K/uL (4.8-10.8)
--- NOTE | 2017-09-22 08:07 | Orthopedic Progress Note ---
Orthopedic Progress Note Date of Service Sep 22, 2017. Subjective Post OP Day: 2 Reports: pain controlled w PO medications, Denies: feeling well, complaints, chest pain, SOB, nausea / vomiting, light headedness, calf pain Additional Notes: HGB 7.2 this AM Objective calves soft nontender, N/V intact, hip located, capillary refill less than 2 sec., dressing C/D/I, incision C/D/I, toes mobile Date Time Temp Pulse Resp B/P (MAP) Pulse Ox O2 Delivery O2 Flow Rate FiO2 09/22/17 07:07 36.6 83 16 134/70 (91) 99 Room Air 09/21/17 23:55 Nasal Cannula 2.0 09/21/17 22:50 36.4 86 18 102/60 (74) 97 Nasal Cannula 2.0 09/21/17 22:35 98 Nasal Cannula 2.0 09/21/17 22:34 86 Room Air 09/21/17 20:00 94 Room Air 09/21/17 15:30 Room Air 09/21/17 15:20 36.5 93 16 131/73 (92) 92 Room Air 09/21/17 13:35 92 Room Air 09/21/17 12:00 36.9 99 18 115/68 (84) 94 Room Air Laboratory Results 24 Hours: Test 09/22/17 05:51 White Blood Count 9.79 K/uL Red Blood Count 2.13 M/uL Hemoglobin 7.2 g/dL Hematocrit 22.0 % Mean Corpuscular Volume 103.3 fL Mean Corpuscular Hemoglobin 33.8 pg Mean Corpuscular Hemoglobin Concent 32.7 g/dl Platelet Count 152 K/uL Mean Platelet Volume 10.3 fL Neutrophils (%) (Auto) 76.2 % Lymphocytes (%) (Auto) 10.7 % Monocytes (%) (Auto) 11.4 % Eosinophils (%) (Auto) 1.0 % Basophils (%) (Auto) 0.4 % Neutrophils # (Auto) 7.45 K/uL Lymphocytes # (Auto) 1.05 K/uL Monocytes # (Auto) 1.12 K/uL Eosinophils # (Auto) 0.10 K/uL Basophils # (Auto) 0.04 K/uL Assessment & Plan Assessment: POD #2, ORIF Left Hip with Medium length troch nail. Acute blood loss anemia Plan: PT/ OT 25-50% WB w walker DVT proph- ASA D/C planning- [facility] when medically stable As per medicine, Hgb 7.2, primary service notified per nursing for probable transfusion.
--- NOTE | 2017-09-22 08:15 | NUR ---
Updated information faxed to [facility] including recent progress notes and PT/OT evals. Awaiting to hear if they can accept pt. Addendum: 09/22/17 at 1407 by Sylvia BARROW Spoke with Vanessa at [facility]. They should be able to accept Pt tomorrow pending insurance authorization. They would need Pt to be transferred prior to 1500. [facility] auth request faxed to [facility] for possible transfer to [facility] tomorrow.
--- NOTE | 2017-09-22 08:32 | DIAGNOSTIC IMAGING REPORT ---
L FEMUR 2 VIEWS ROUTINE CLINICAL HISTORY: Left troch nail postoperative evaluation COMPARISON: 09/19/2017 DISCUSSION: Anatomic alignment status post left hip nailing procedure. Previous described fractures unchanged. No evidence dislocation. There is no evidence for soft tissue swelling. IMPRESSION: Acceptable alignment post left hip nailing procedure The above report was generated using voice recognition software. It may contain grammatical, syntax or spelling errors. Electronically signed by: Yobany Malone M.D. 09/22/2017 8:30 AM Dictated Date/Time: 09/22/2017 8:29 AM
--- NOTE | 2017-09-22 08:40 | Progress Note ---
Medicine Progress Note Date & Time of Visit: Sep 22, 2017 at 08:34. Subjective 82 yo F s/p mechanical fall with subsequent L hip fracture with pain. she underwent fracture repair 2 days ago. She was noted to be more anemic this morning off the IVF and reports worsened pain in her hip more on the medial upper thigh area. She has not tried to walk this morning. She is tolerating PO. She does admit to some lightheadedness this morning. No other symptoms at this time. She was ambulating well with walker yesterday and appeared more comfortable than she did yesterday. I discussed the plan with Yobany Paredes who will consider further CT imaging if they think it necessary. Objective Last 8 Hrs Date Time Temp Pulse Resp B/P (MAP) Pulse Ox O2 Delivery O2 Flow Rate FiO2 09/22/17 07:15 Room Air 09/22/17 07:07 36.6 83 16 134/70 (91) 99 Room Air Physical Exam: GEN: WNWD, NAD, alert and appropriate HEENT: NC/AT, normal sclerae, MMM CARDIO: reg rate, S1/2 heard without m/g/r LUNGS: CTA bilaterally, no crackles, rales or wheezes, good diaphragmatic excursion ABD: soft, non-tender, non-distended, no rebound or guarding, +BS EXTREMITY: RP and DP palpable 2+ bilat, no LE swelling or edema, extremities are warm and well-perfused, bandages on outer L thigh is C/D/I, minimal bruising NEURO: CN 2-12 grossly intact, sensation intact throughout MSK: normal ROM LLE SKIN: warm and dry and wound as above. Appears more pale today. Laboratory Results: 09/22/17 05:51 Red Blood Count 2.13, Mean Corpuscular Volume 103.3, Mean Corpuscular Hemoglobin 33.8, Mean Corpuscular Hemoglobin Concent 32.7, Mean Platelet Volume 10.3, Neutrophils (%) (Auto) 76.2, Lymphocytes (%) (Auto) 10.7, Monocytes (%) ( Auto) 11.4, Eosinophils (%) (Auto) 1.0, Basophils (%) (Auto) 0.4, Neutrophils # (Auto) 7.45, Lymphocytes # (Auto) 1.05, Monocytes # (Auto) 1.12, Eosinophils # ( Auto) 0.10, Basophils # (Auto) 0.04 09/21/17 06:27 Test 09/19/17 16:10 09/19/17 22:15 09/20/17 05:06 09/21/17 06:27 Activated Partial Thromboplast Time 22.6 SECONDS (21.0-31.0) Partial Thromboplastin Ratio 0.9 Total Bilirubin 0.3 mg/dl (0.2-1) Direct Bilirubin < 0.1 mg/dl (0-0.2) Aspartate Amino Transf (AST/SGOT) 17 U/L (15-37) Alanine Aminotransferase (ALT/SGPT) 20 U/L (12-78) Alkaline Phosphatase 75 U/L (45-117) Total Protein 7.2 gm/dl (6.4-8.2) Albumin 3.6 gm/dl (3.4-5.0) Urine Color YELLOW Urine Appearance CLEAR (CLEAR) Urine pH 8.0 (4.5-7.5) Urine Specific [place] 1.019 (1.000-1.030) Urine Protein NEG (NEG) Urine Glucose (UA) NEG (NEG) Urine Ketones TRACE (NEG) Urine Occult Blood NEG (NEG) Urine Nitrite NEG (NEG) Urine Bilirubin NEG (NEG) Urine Urobilinogen NEG (NEG) Urine Leukocyte Esterase NEG (NEG) Prothrombin Time 9.8 SECONDS (9.0-12.0) Prothromb Time International Ratio 0.9 (0.9-1.1) Anion Gap 6.0 mmol/L (3-11) Est Creatinine Clear Calc Drug Dose 43.1 ml/min Estimated GFR () 57.5 Estimated GFR (Non- 49.6 BUN/Creatinine Ratio 12.1 (10-20) Calcium Level 7.9 mg/dl (8.5-10.1) Magnesium Level 2.0 mg/dl (1.8-2.4) Test 09/22/17 05:51 White Blood Count 9.79 K/uL (4.8-10.8) Red Blood Count 2.13 M/uL (4.2-5.4) Hemoglobin 7.2 g/dL (12.0-16.0) Hematocrit 22.0 % (37-47) Mean Corpuscular Volume 103.3 fL (80-100) Mean Corpuscular Hemoglobin 33.8 pg (25-34) Mean Corpuscular Hemoglobin Concent 32.7 g/dl (32-36) Platelet Count 152 K/uL (130-400) Mean Platelet Volume 10.3 fL (7.4-10.4) Neutrophils (%) (Auto) 76.2 % Lymphocytes (%) (Auto) 10.7 % Monocytes (%) (Auto) 11.4 % Eosinophils (%) (Auto) 1.0 % Basophils (%) (Auto) 0.4 % Neutrophils # (Auto) 7.45 K/uL (1.4-6.5) Lymphocytes # (Auto) 1.05 K/uL (1.2-3.4) Monocytes # (Auto) 1.12 K/uL (0.11-0.59) Eosinophils # (Auto) 0.10 K/uL (0-0.5) Basophils # (Auto) 0.04 K/uL (0-0.2) RDW Standard Deviation 50.0 fL (36.4-46.3) RDW Coefficient of Variation 13.3 % (11.5-14.5) Immature Granulocyte % (Auto) 0.3 % Immature Granulocyte # (Auto) 0.03 K/uL (0.00-0.02) Red Blood Cell Morphology Unremarkable Date/Time Source Procedure Growth Status 09/19/17 22:15 Nasal MRSA DNA Surveillance Screen - Final Specimen Negative for MRSA by DNA Probe Complete Last 24 Hours Test 09/22/17 05:51 White Blood Count 9.79 K/uL Red Blood Count 2.13 M/uL Hemoglobin 7.2 g/dL Hematocrit 22.0 % Mean Corpuscular Volume 103.3 fL Mean Corpuscular Hemoglobin 33.8 pg Mean Corpuscular Hemoglobin Concent 32.7 g/dl Platelet Count 152 K/uL Mean Platelet Volume 10.3 fL Neutrophils (%) (Auto) 76.2 % Lymphocytes (%) (Auto) 10.7 % Monocytes (%) (Auto) 11.4 % Eosinophils (%) (Auto) 1.0 % Basophils (%) (Auto) 0.4 % Neutrophils # (Auto) 7.45 K/uL Lymphocytes # (Auto) 1.05 K/uL Monocytes # (Auto) 1.12 K/uL Eosinophils # (Auto) 0.10 K/uL Basophils # (Auto) 0.04 K/uL RDW Standard Deviation 50.0 fL RDW Coefficient of Variation 13.3 % Immature Granulocyte % (Auto) 0.3 % Immature Granulocyte # (Auto) 0.03 K/uL Red Blood Cell Morphology Unremarkable Assessment & Plan 82 yo F s/p mechanical fall with subsequent L hip fracture with pain. she underwent fracture repair 2 days ago. She was noted to be more anemic this morning off the IVF and reports worsened pain in her hip more on the medial upper thigh area. She has not tried to walk this morning. She is tolerating PO. She does admit to some lightheadedness this morning. No other symptoms at this time. She was ambulating well with walker yesterday and appeared more comfortable than she did yesterday. I discussed the plan with Yobany Paredes who will consider further CT imaging if they think it necessary. 1. s/p mechanical fall and left hip fracture s/p repair POD#1-pain well controlled, ambulating with walker. Plans for DC to [facility] in am. Follow-up with Ortho as outpatient. 2. Acute blood loss anemia 2/2 post-operative state-transfusing 2 units of blood now. 3. CKD III She is at baseline creatinine today with GFR in the 40s. Cont to avoid nephrotoxic substances as able and renally dose medications. 4. Hypothyroidism. Continue Synthroid. 5. Hyperlipidemia. Continue statin. 6. Depression. Continue Zoloft. Full code DVT proph-ASA 325 BID per Ortho-HELD this morning in setting of anemia. Dispo-to rehab after blood counts have stabilized. [facility] Hospital[facility] Consultants: Jarvis, Dr. Krishnan Current Inpatient Medications: Current Inpatient Medications Medications (Trade) Dose Ordered Sig/[place] Route Start Time Stop Time Status Last Admin Dose Admin Acetaminophen (Tylenol Tab) 650 mg Q4H PRN PO 09/19/17 18:00 10/19/17 17:59 09/19/17 23:26 650 MG Ondansetron HCl (Zofran Inj) 4 mg Q6H PRN IV 09/19/17 18:00 10/19/17 17:59 09/20/17 20:06 4 MG Levothyroxine Sodium (Synthroid Tab) 75 mcg DAILYBB PO 09/20/17 06:00 10/20/17 06:59 09/22/17 05:20 75 MCG Multivitamins (Multivitamin Tab) 1 tab DAILY PO 09/20/17 09:00 10/20/17 08:59 09/21/17 08:42 1 TAB Sertraline HCl (Zoloft Tab) 50 mg DAILY PO 09/20/17 09:00 10/20/17 08:59 09/21/17 08:42 50 MG Simvastatin (Zocor Tab) 10 mg QPM PO 09/19/17 21:00 10/19/17 20:59 09/21/17 21:20 10 MG Hydromorphone HCl (Dilaudid Inj) 0.5 mg Q3HWA PRN IV 09/19/17 18:00 10/03/17 17:59 09/20/17 20:06 0.5 MG Calcium/Vitamin D (Caltrate Plus Tab) 1 tab DAILY PO 09/20/17 09:00 10/20/17 08:59 09/21/17 08:42 1 TAB Naloxone HCl (Narcan Inj) 0.1 mg PRN PRN IV 09/19/17 21:15 10/19/17 21:14 Senna/Docusate Sodium (Senokot S Tab) 2 tab HS PO 09/20/17 21:00 10/20/17 20:59 09/20/17 20:30 2 TAB Polyethylene (Miralax Powder Packet) 17 gm DAILY PRN PO 09/19/17 21:15 10/19/17 21:14 Magnesium Hydroxide (Milk Of Magnesia Susp) 30 ml DAILY PRN PO 09/19/17 21:15 10/19/17 21:14 Sodium Biphosphate/ Sodium Phosphate (Fleet Enema) 132 ml PRN PRN [place] 09/19/17 21:15 Oxycodone/ Acetaminophen (Percocet 5-325mg Tab) 1 tab Q4H PRN PO 09/20/17 10:00 10/04/17 09:59 09/21/17 21:20 1 TAB Aspirin/Aluminum/ Magnesium/Ca Carb (Ascriptin Tab) 325 mg BID PO 09/20/17 21:00 10/20/17 20:59 Future hold 09/21/17 21:19 325 MG Bisacodyl (Dulcolax Supp) 10 mg DAILY PRN [place] 09/20/17 18:30 10/20/17 18:29
[2017-09-22] MEDS ORDERED: ACETAMINOPHEN 325 MG TAB PO ONE (08:45)
[2017-09-22] MEDS: MULTIVITAMIN TAB PO SCH (09:21)
[2017-09-22] MEDS: SERTRALINE HCL 50 MG TAB PO SCH (09:21)
[2017-09-22] MEDS: OXYCODONE/ACETAMINOPHEN 5-325 TAB PO PRN ×3 (09:21→20:36)
[2017-09-22] MEDS: CALCIUM 600MG + VIT D 400 IU TAB PO SCH (09:22)
--- NOTE | 2017-09-22 13:28 | NUR ---
At approximately 1320 pm patient rang for assistance to go to bathroom.While doing so i observed the patient's son using his cell phone to video the dry erase boards in the room as well as myself when i turned around.Son denied doing so.However,i did witness his phone set to video and the surroundings of the room when he abruptly turned and as i confronted him.
[2017-09-22] MEDS: SIMVASTATIN 10 MG TAB PO SCH (20:35)
[2017-09-22] MEDS: DOCUSATE SODIUM/SENNA 50/8.6MG TAB PO SCH (20:36)
--- NOTE | 2017-09-22 21:55 | NUR ---
ID note: pt alert and oriented x4. OOB with 1 assist and the walker. OOB to the chair for dinner. Tolerating a AHA diet. Voiding in the bathroom without difficulty. PO pain medication given to help the pt have pain control this shift. Dressing to left hip intact. S.L. D/C plans for [facility].
[2017-09-23] MEDS: LEVOTHYROXINE 75 MCG TAB PO SCH (05:42)
[2017-09-23] MEDS: OXYCODONE/ACETAMINOPHEN 5-325 TAB PO PRN ×2 (05:42→13:23)
[2017-09-23 07:09] LABS: HEMATOCRIT 29.4 % (37-47); HEMOGLOBIN 10.1 g/dL (12.0-16.0); MEAN CELL VOLUME 97.7 fL (80-100); MEAN CORPUSCULAR HEMOGLOBIN 33.6 pg (25-34); MEAN CORPUSCULAR HGB CONC 34.4 g/dl (32-36); MEAN PLATELET VOLUME 10.5 fL (7.4-10.4); PLATELET COUNT 163 K/uL (130-400); RED CELL DISTRIBUTION WIDTH CV 16.6 % (11.5-14.5); RED CELL DISTRIBUTION WIDTH SD 58.9 fL (36.4-46.3); WHITE BLOOD COUNT 10.93 K/uL (4.8-10.8)
[2017-09-23 07:28] VITALS: BP 120/70; PULSE 77; TEMP 36.4; O2SAT 97
--- NOTE | 2017-09-23 07:55 | Orthopedic Progress Note ---
Orthopedic Progress Note Date of Service Sep 23, 2017. Subjective Post OP Day: 3 Reports: feeling well, pain controlled w PO medications, Denies: complaints, chest pain, SOB, nausea / vomiting, light headedness, calf pain Additional Notes: Hbg 10.1 this AM Objective calves soft nontender, N/V intact, hip located, capillary refill less than 2 sec., dressing C/D/I, A&O x3, toes mobile Patient much more awake and alert, appropriate this AM. Date Time Temp Pulse Resp B/P (MAP) Pulse Ox O2 Delivery O2 Flow Rate FiO2 09/23/17 07:28 36.4 77 18 120/70 (87) 97 Nasal Cannula 2.0 09/22/17 22:50 Nasal Cannula 2.0 09/22/17 22:50 36.7 86 16 124/70 (88) 95 Nasal Cannula 2.0 09/22/17 22:12 91 Nasal Cannula 2.0 09/22/17 22:11 88 Room Air 09/22/17 17:15 36.7 73 16 119/69 96 2.0 09/22/17 16:45 36.9 81 18 122/72 98 2.0 09/22/17 16:15 36.9 80 16 118/70 90 09/22/17 16:00 36.9 80 16 130/76 92 09/22/17 15:40 36.8 72 18 112/70 92 09/22/17 15:30 Room Air 09/22/17 14:16 37.0 77 18 114/62 09/22/17 12:55 37.4 79 16 146/84 92 09/22/17 12:25 36.8 87 18 126/71 09/22/17 12:10 36.8 83 18 108/64 09/22/17 11:42 36.8 83 18 103/64 Laboratory Results 24 Hours: Test 09/23/17 06:09 Hematocrit 29.4 % Hemoglobin 10.1 g/dL Assessment & Plan Assessment: POD #3, ORIF Left Hip with Medium length troch nail. Acute blood loss anemia, stable at 10.1 this AM s/p transfusion. Plan: PT/ OT 25-50% WB w walker DVT proph- ASA- resume as per medicine D/C planning- [facility] when medically stable As per medicine, Hgb stable at 10.1 this AM.. Ortho will sign off, thank you.
--- NOTE | 2017-09-23 07:58 | Consultant Recommendations ---
Appliquer Recommendations Date of Service Sep 23, 2017. Appliquer Recommendations S/P Left Hip ORIF w trochanteric nail PT/ OT; 25-50% weight bearing Left leg w walker DVT proph- ASA Follow up with Dr. Reina 12-14 days post op, call [phone] for appt.
--- NOTE | 2017-09-23 08:17 | NUR ---
Received message from Katheryn at [facility]. Pt is approved to transfer to [facility] today. Auth number [id number]. Approved for 6 days. [facility] level- RVB. approved for 558 therapy minutes/week. Next review is 09/28. Left message with Vanessa at [facility] and provided auth number. Informed MD that Pt is approved to transfer today if medically stable. Case Management will follow. Addendum: 09/23/17 at 0843 by Sylvia BARROW Received call from Vanessa at [facility]. She states they now can not accept Pt today. They are capped out on admissions and can not accept anyone until Tuesday. Will discuss alternative with Pt.
[2017-09-23] MEDS: MULTIVITAMIN TAB PO SCH (08:55)
[2017-09-23] MEDS: SERTRALINE HCL 50 MG TAB PO SCH (08:55)
[2017-09-23] MEDS: CALCIUM 600MG + VIT D 400 IU TAB PO SCH (08:55)
--- NOTE | 2017-09-23 09:48 | NUR ---
Received call from Jennyfer at the [facility]. They do not have any short term beds available at this time. Spoke with Domitila at [facility]. They state they may have a bed available. They will review referral and let case Management know if they can accept PT. Awaiting return call from [facility]. Addendum: 09/23/17 at 1130 by Sylvia BARROW Received call from Domitila at [facility]. They can accept Pt today. Provided auth number for SNF. Left message for [facility] facility. Spoke with Pt. She is agreeable to transferring to [facility] today. Per Dr. Cerrato, she will send Pt to rehab today.
--- NOTE | 2017-09-23 10:30 | NUR ---
A: Pt oob to chair. She reports feeling much better than yesterday and understands that she needed the blood transfusion to help "pep" her up! She is waiting to hear which SNF has a room for her and she is hoping to go today. She is passing gas and is aware of constipation prevention measures to use if needed. She is aware that she will be taking ASA to prevent blood clots during recovery. We discussed the importance of frequent ambulation, safety measures, and active participation in PT.No other issues or concerns at this time.
[2017-09-23] MEDS ORDERED: MRLP17X PO (12:00)
[2017-09-23] MEDS ORDERED: ASPI325T60 PO (12:00)
[2017-09-23] MEDS ORDERED: OXYC-57 PO (12:00)
[2017-09-23] MEDS ORDERED: SENN8.6T7 PO (12:00)
--- NOTE | 2017-09-23 12:04 | NUR ---
Received message from [employer]. Authorization was updated to refect Pt is going to [facility]. Auth number and information remains the same. [employer] can provide w/c van transport at 1400. Nursing and Pt aware of transport time. Spoke with Pt's son, Jonathon and advised of transport time. Spoke with Domitila at [facility] and advised of auth information and transport time. Will fax d/c instructions when finalized.
--- NOTE | 2017-09-23 12:09 | Discharge Instructions ---
Discharge Instructions Date of Service Sep 23, 2017. Admission Reason for Admission: Hip Fracture,Left Discharge Discharge Diagnosis / Problem: S/P Left Hip ORIF w trochanteric nail Discharge Goals Goal(s): Improve function, Increase independence, Therapeutic intervention Activity Recommendations Activity Limitations: per Instructions/Follow-up section . Instructions / Follow-Up Instructions / Follow-Up Please take all medications as instructed. You will be on ASPIRIN 325mg TWICE DAILY for FOUR WEEKS as prophylaxis for blood clot formation after surgery. Then you can resume your normal daily aspirin. You are on PERCOCET as needed for pain which may cause constipation. A stool softener and laxative have been given to you for use to avoid this while on narcotics. Please avoid other NSAIDs while taking the aspirin above. I would recommend a H/H (nonfasting bloodwork) to be drawn in 5 days. This can be done by the rehab facility and results should be sent to your primary care provider, Dr. Leobardo Lowery. You will need ot followup with Dr. Reina in the office in two weeks. Please call call [phone] for appt It is recommended that you follow-up with Dr. Lowery within one week of discharge from the rehab center. It was a pleasure taking care of you! Call if you have any questions or problems. You can reach a [facility] hospitalist on duty at [facility] 24 hours a day by calling [phone]. Take care of yourself. Shirley Cerrato DO [facility] Hospitalist Current Hospital Diet Patient's current hospital diet: [facility] Diet (Heart Healthy) Discharge Diet Recommended Diet: AHA Diet (Heart Healthy) Procedures Procedures Performed: ORIF left hip WITH TROCHANTERIC MID LENGTH femoral nail Pending Studies Studies pending at discharge: no Medical Emergencies . Who to Call and When: Medical Emergencies: If at any time you feel your situation is an emergency, please call [phone] immediately. . Non-Emergent Contact Non-Emergency issues call your: Primary Care Provider . . "Provider Documentation" section prepared by Shirley Cerrato. . Area Captain Recommendations Area Captain Recommendations: S/P Left Hip ORIF w trochanteric nail PT/ OT; 25-50% weight bearing Left leg w walker DVT proph- ASA Follow up with Dr. Reina 12-14 days post op, call [phone] for appt. VTE Core Measure Inpt VTE Proph given/why not?: Other Anticoagulation (aspirin) [place] Drug Monitoring Program Search Results: patient reviewed within database, no issues identified
--- NOTE | 2017-09-23 12:12 | Discharge Summary ---
Discharge Summary Date of Service Sep 23, 2017. Discharge Summary Admission Date: Sep 19, 2017 at 17:51 Discharge Date: Sep 23, 2017 Discharge Disposition: Rehab Principal Diagnosis: s/p mechanical fall and left hip fracture s/p ORIF with trochanteric nail Acute blood loss anemia 2/2 post-operative state CKD III Hypothyroidism Hyperlipidemia Depression Procedures: L hip ORIF with trochanteric nail Vaccinations: None. Consultations: Ortho, Dr. Krishnan Pending Studies/Follow-Up: see instructions below. Medication Reconciliation New Medications: Aspirin Buffered (Nicolas Carb-Mag (Tri-Buffered Aspirin) 1 Tab Tab 325 MG PO BID for 30 Days, #60 TAB Oxycodone/Acetaminophen 5MG/325MG (Percocet 5MG/325MG) Tab 1 TAB PO Q6H PRN for pain for 7 Days, #28 TAB PAIN Polyethylene (Miralax) 17 Gm Pow 17 GM PO DAILY PRN for Constipation for 7 Days, #1 BTL For use while taking narcotics. Sennosides-Docusate Sodium (Senokot S) 1 Tab Tab 2 TAB PO HS for 7 Days, #14 TAB Continued Medications: Calcium Carbonate-Cholecalcife (Caltrate 600+D) 1 Tab Tab 1 TAB PO DAILY, #30 Levothyroxine Sodium (Levothyroxine Sodium) 75 Mcg Tab 75 MCG PO DAILY Multivitamin (Multivitamin) Tab 1 TAB PO DAILY Sertraline HCl (Sertraline HCl) 50 Mg Tab 50 MG PO DAILY Simvastatin (Simvastatin) 10 Mg Tab 10 MG PO QPM Discontinued Medications: Aspirin (Aspirin) 325 Mg Tab 325 MG PO DAILY Admission Information HPI (per Admitting provider): HISTORY OF PRESENT ILLNESS: This is an 82-year-old female with past medical history significant for psoriasis, depression, hyperlipidemia, hypothyroidism, chronic kidney disease stage III, presents with fall and left hip fracture. The patient says she was going to a car and it was slope and has ice and she slipped on the ice and she thinks she might have felt first on the right shoulder and then on the left hip and she could not get up and she was having severe pain and she was brought into the ER.In the ER, x-rays showed left hip comminuted intertrochanteric fracture. Blood pressure running high mostly secondary to pain. She still has some pain. Denies any dizziness prior to fall. No chest pain. No shortness of breath. No loss of consciousness. The patient has some chronic on and off cough. Denies any fever, chills, no headaches, no blurred vision, no runny nose, has hearing aids. No sore throat, no difficulty swallowing. No nausea, no vomiting, no abdominal pain. Normal bowel and bladder movements. No burning micturition. The patient is otherwise very active. She works in [employer] and she walks a lot, currently resting comfortable and hemodynamically stable. Physical Exam (per Admitting): PHYSICAL EXAMINATION: GENERAL: The patient is of moderate build, not in distress. VITAL SIGNS: Temperature 36.4, pulse 75, respiratory rate 18, blood pressure 181/88, oxygen 98% room air. HEENT: No pallor, no icterus. Pupils equal, round, and reactive to light. NECK: No JVD, no neck masses, no carotid bruits. CARDIOVASCULAR: S1, S2 heard, regular rate and rhythm, no murmur, no gallop. RESPIRATORY SYSTEM: Normal AP diameter. No accessory muscle use. No wheezing, no crackles. ABDOMEN: Soft, bowel sounds present. Nontender. No distention. CENTRAL NERVOUS SYSTEM: Cranial nerves II-XII grossly intact. Nonfocal. EXTREMITIES: The left lower extremity is externally rotated and shortened. Right shoulder has some painful movement which is chronic. Hospital Course 82 yo F s/p mechanical fall with subsequent L hip fracture with pain. she underwent fracture repair. She was noted to be more anemic off the IVF and was transfused 2 units of blood and H/H remained stable. On day of discharge physical exam was unremarkable. She was ambulating with assist and was transferred to rehab in stable condition. 1. s/p mechanical fall and left hip fracture s/p repair POD#1-pain well controlled, ambulating with walker. Plans for DC to [facility] in am. Follow-up with Ortho as outpatient. 2. Acute blood loss anemia 2/2 post-operative state-transfusing 2 units of blood now. 3. CKD III She is at baseline creatinine today with GFR in the 40s. Cont to avoid nephrotoxic substances as able and renally dose medications. 4. Hypothyroidism. Continue Synthroid. 5. Hyperlipidemia. Continue statin. 6. Depression. Continue Zoloft. Total time spent on discharge = 60 minutes This includes examination of the patient, discharge planning, medication reconciliation, and communication with other providers. Discharge Instructions [facility] [address] [place] [address] Discharge Medical Patient Name: Nereida Villarreal Unit Number: [id number] Date of : 1935 Patient Status: Admitted Inpatient Attending Doctor: Shirley Cerrato DO DI: Medical v4 Discharge Instructions Date of Service Sep 23, 2017. Admission Reason for Admission: Hip Fracture,Left Discharge Discharge Diagnosis / Problem: S/P Left Hip ORIF w trochanteric nail Discharge Goals Goal(s): Improve function, Increase independence, Therapeutic intervention Activity Recommendations Activity Limitations: per Instructions/Follow-up section . Instructions / Follow-Up Instructions / Follow-Up Please take all medications as instructed. You will be on ASPIRIN 325mg TWICE DAILY for FOUR WEEKS as prophylaxis for blood clot formation after surgery. Then you can resume your normal daily aspirin. You are on PERCOCET as needed for pain which may cause constipation. A stool softener and laxative have been given to you for use to avoid this while on narcotics. Please avoid other NSAIDs while taking the aspirin above. I would recommend a H/H (nonfasting bloodwork) to be drawn in 5 days. This can be done by the rehab facility and results should be sent to your primary care provider, Dr. Leobardo Lowery. You will need ot followup with Dr. Reina in the office in two weeks. Please call call [phone] for appt It is recommended that you follow-up with Dr. Lowery within one week of discharge from the rehab center. It was a pleasure taking care of you! Call if you have any questions or problems. You can reach a [facility] hospitalist on duty at [facility] 24 hours a day by calling [phone]. Take care of yourself. Shirley Cerrato DO [facility] Hospitalist Current Hospital Diet Patient's current hospital diet: AHA Diet (Heart Healthy) Discharge Diet Recommended Diet: AHA Diet (Heart Healthy) Procedures Procedures Performed: ORIF left hip WITH TROCHANTERIC MID LENGTH femoral nail Pending Studies Studies pending at discharge: no Medical Emergencies . Who to Call and When: Medical Emergencies: If at any time you feel your situation is an emergency, please call [phone] immediately. . Non-Emergent Contact Non-Emergency issues call your: Primary Care Provider . . "Provider Documentation" section prepared by Shirley Cerrato. . Sidehand Recommendations Sidehand Recommendations: S/P Left Hip ORIF w trochanteric nail PT/ OT; 25-50% weight bearing Left leg w walker DVT proph- ASA Follow up with Dr. Reina 12-14 days post op, call [phone] for appt. VTE Core Measure Inpt VTE Proph given/why not?: Other Anticoagulation (aspirin) [place] Drug Monitoring [place] Search Results: patient reviewed within database, no issues identified Additional Copies To Leobardo Lowery D.O.
[2017-09-23 13:16] VITALS: BP 120/70; PULSE 77; TEMP 36.4; O2SAT 97
--- NOTE | 2017-09-23 14:03 | NUR ---
A: REPORT CALLED TO LULU AT [facility].
== END 2017-09-23 14:10 | DRG 481 ==
LOC: EDBD 15:36 → C.EDB 15:37 → C.MSN 17:51 → ENRESERV 18:08
PROVIDERS: ADMIT Internal Medicine; ATTEND Hospitalist
PROC: 0QS706Z Reposition Left Upper Femur with Intramedullary Internal Fixation Device, Open Approach (ICD-10-PCS; principal; 2017-09-19)
DX: S72.142A Displaced intertrochanteric fracture of left femur, initial encounter for closed fracture (principal); N17.9 Acute kidney failure, unspecified; D62 Acute posthemorrhagic anemia; M25.511 Pain in right shoulder; E03.9 Hypothyroidism, unspecified; E78.00 Pure hypercholesterolemia, unspecified; L40.9 Psoriasis, unspecified; F32.9 Major depressive disorder, single episode, unspecified; N18.3 Chronic kidney disease, stage 3 (moderate); Z79.82 Long term (current) use of aspirin; Z79.899 Other long term (current) drug therapy; W01.0XXA Fall on same level from slipping, tripping and stumbling without subsequent striking against object, initial encounter